=== PATIENT | female | born 1950 | race Caucasian/White ===

== ENCOUNTER 2018-09-19 08:10 | Emergency (ER) | payer MEDICARE ==
[2018-09-19 08:28] VITALS: BP 161/98
--- NOTE | 2018-09-19 09:00 | UC ---
Ear Complaint HPI - HPI Summary HPI Summary: The patient is a 68-year-old female that presents here with a number of complaints. She has had nasal congestion and postnasal drip for approximately 1 week. She states that she has seasonal allergic rhinitis. About 2 years ago she saw an ENT and had sinus surgery as well as bilateral pressure equalization tubes. In the past 2 years she hasn't noticed a marked diminishing of her hearing in the right ear. She denies having any perforation of her traumatic tympanic membrane. She has not been febrile. Her allergy medicines have not been working. She has also had a two-week history of diaphoresis. These episodes seem to occur without rhyme or reason. Occasionally she has had some chest pressure associated with these episodes. She has not had shortness of breath. She has had about a 20 pound weight gain in the past 6 months. She has had a very pruritic rash for a number of weeks. - History of Current Complaint Chief Complaint: UCGeneralIllness Stated Complaint: SWEATING,RASH,RT EAR/SINUS COMPLAINT Time Seen by Provider: 09/19/18 08:50 Hx Obtained From: Patient Onset/Duration: Gradual Onset, Lasting Days Severity Initially: Severe Severity Currently: Severe Pain Intensity: 9 Pain Scale Used: 0-10 Numeric - Allergies/Home Medications Allergies/Adverse Reactions: Allergies Allergy/AdvReac Type Severity Reaction Status Date / Time Penicillins Allergy Hives Verified 09/19/18 08:22 Sulfa (Sulfonamide Allergy Hives Verified 09/19/18 08:22 Antibiotics) Home Medications: Home Medications Acetaminop/Codeine 30 MG TAB* [Tylenol/Codeine 30 MG TAB*] 1 tab PO Q6H PRN [History Confirmed 09/19/18] Aspirin 81 mg CHEW TAB* [Aspirin Low Dose TAB*] 81 mg PO DAILY 09/19/18 [ History Confirmed 09/19/18] Bupropion XL* [Wellbutrin XL *] 150 mg PO BID 09/19/18 [History Confirmed ] Glucosam/Chondr/Collagn/Hyalur [Th Glucosamine/Chondroiti] 1 cap PO BID [History Confirmed 09/19/18] L. Acidophilus/Lactobac Spor [Acidophilus/l-Sporogenes] 1 tab PO TID WITH MEALS 09/19/18 [History Confirmed 09/19/18] Levothyroxine TAB* [Synthroid TAB*] 88 mcg PO DAILY 09/19/18 [History Confirmed 09/19/18] Lisinopril TAB* [Prinivil TAB*] 20 mg PO DAILY 09/19/18 [History Confirmed 09/19] LoraTADine TAB(NF) [Claritin 10 MG TAB(NF)] 10 mg PO DAILY 09/19/18 [History Confirmed 09/19/18] amLODIPine TAB* [Norvasc 5 mg TAB*] 5 mg PO DAILY 09/19/18 [History Confirmed ] PMH/Surg Hx/FS Hx/Imm Hx Previously Healthy: Yes Endocrine History: Dyslipidemia Cardiovascular History: Hypertension - Surgical History Surgical History: Yes Surgery Procedure, Year, and Place: Right Leg "Arteries" Stenting, Appendectomy , Partial Hysterectomy, Right Knee Arthroscopies - Family History Known Family History: Positive: Cardiac Disease, Hypertension, Diabetes - Social History Alcohol Use: Occasionally Substance Use Type: None Smoking Status (MU): Heavy Every Day Tobacco Smoker Type: Cigarettes Amount Used/How Often: 1/2 PPD Length of Time of Smoking/Using Tobacco: Since Age 15 Review of Systems Constitutional: Fatigue Skin: Rash Eyes: Negative ENT: Ear Ache, Nasal Discharge, Sinus Congestion Respiratory: Negative Cardiovascular: Negative Gastrointestinal: Negative Genitourinary: Negative Motor: Negative Neurovascular: Negative Musculoskeletal: Negative Neurological: Negative Psychological: Negative All Other Systems Reviewed And Are Negative: Yes Physical Exam Triage Information Reviewed: Yes Appearance: Well-Appearing, No Pain Distress, Well-Nourished Vital Signs: Initial Vital Signs Temp 97.7 F 09/19/18 08:20 Pulse 92 09/19/18 08:20 Resp 22 09/19/18 08:20 BP 161/98 09/19/18 08:20 Pulse Ox 99 09/19/18 08:20 Eyes: Positive: Conjunctiva Clear ENT: Positive: Nasal congestion, Nasal drainage, Uvula midline, Other - Right tragal tenderness. Negative: Hearing grossly normal - decreased right ear, TMs normal - unable to visualize R TM due to debris in EAC, left TM OK, Tonsillar swelling, Tonsillar exudate, Muffled voice, Hoarse voice, Dental tenderness, Sinus tenderness Neck: Positive: Supple, Nontender Respiratory: Positive: Lungs clear, Normal breath sounds, No respiratory distress, No accessory muscle use Cardiovascular: Positive: RRR, No Murmur Abdomen Description: Negative: Nontender - markedly tender RUQ Musculoskeletal: Positive: ROM Intact, No Edema Neurological: Positive: Alert Psychological Exam: Normal Skin Exam: Other - scabs/excoriated lesion exr and abd, papules, no demetrice noted Diagnostics - EKG Cardiac Rate: NL Cardiac Rhythm: Sinus: Normal Ectopy: None ST Segment: Non-Specific Ear Complaint Course/Dx - Course Course Of Treatment: After flush Right TM appears intact. I informed patient I was concerned about possible GB disease and her diaphoresis. I suggest she go to the ER. I spoke to Dr. Quinones - Differential Dx/Diagnosis Provider Diagnoses: diaphoresis and RUQ abd tenderness (? cause). scabies. right otitis externa Discharge - Sign-Out/Discharge Documenting (check all that apply): Patient Departure All imaging exams completed and their final reports reviewed: No Studies - Discharge Plan Condition: Stable Disposition: TRANS HIGHER LVL OF CARE FAC Prescriptions: Neomyc/Polym/HC 1% OTIC SUSP* [Cortisporin Otic Susp 1%*] 4 drop RIGHT EAR QID 7 Days #1 btl Permethrin [Elimite] 60 gm TOPICAL WEEKLY #60 cream..g. Patient Education Materials: Otitis Externa (ED), Scabies (ED) Referrals: Flores Baez MD [Primary Care Provider] - Additional Instructions: I suggest you see ENT about your right ear hearing loss I suggest you go to the ER for evaluation of your right sided abd pain I spoke to Dr. Quinones and the ER is expecting you - Billing Disposition and Condition Condition: STABLE Disposition: Trans Higher Lvl of Care Fac
== END 2018-09-19 10:19 | disposition short-term general hospital (02) ==
LOC: UCCORT 08:10
DX: R61 Generalized hyperhidrosis (principal); R10.11 Right upper quadrant pain; B86 Scabies; H60.91 Unspecified otitis externa, right ear; I10 Essential (primary) hypertension; E78.5 Hyperlipidemia, unspecified; F17.210 Nicotine dependence, cigarettes, uncomplicated; Z79.82 Long term (current) use of aspirin; Z88.0 Allergy status to penicillin; Z95.820 Peripheral vascular angioplasty status with implants and grafts
CPT/HCPCS: 93005; 99213; G0463

== ENCOUNTER 2018-10-23 15:43 | Emergency (ER) | payer MEDICARE ==
--- OUTSIDE RECORDS SUMMARY | 2018-10-23 15:57 | XMS REPORT | Continuity of Care Document ---
:1950 External Reference #:[id number] Author Name Flores Baez M.D. 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 Flores Baez MD Primary Care Physician Unavailable Payers Type Date Identification Numbers Payment Provider Subscriber Policy Number: [id number] [employer] [address]anna [address] PayID: [id number] [address] [address] [place] [address] Advance Directives Description No Information Available Problems Description No Information Family History Date Family Member(s) Problem(s) Comments Father Unknown Mother Parkinson's Disease Social History Type Date Description Comments Sex Unknown Tobacco Use Start: Unknown Patient is a current smoker, smokes every day Smoking Status Reviewed: 11/12/17 Patient is a current smoker, smokes every day Allergies, Adverse Reactions, Alerts Date Description Reaction Status Severity Comments 05/25/2014 Penicillins Active 05/25/2014 sulfa Active 05/10/2016 Clarithromycin Active Medications Medication Date Status Form Strength Qnty SIG Indications Ordering Provider Levofloxacin 09/24/ Active Tablets 500mg 10tab tab 1 by J01.90 Flores 2017 s mouth Sasha, every day M.DKenny Claritin 02/17/ Active Capsules 10mg 14cap 1 by H65.03 Anderson Martinez s david Baez MD every day Nebulizer 12/06/ Active Device 1unit as J44.9 Flores 2015 jim Baez M.D. Amlodipine 05/25/ Active Tablets 5mg 90tab 1 By Flores Albert 2013 s Mouth Sasha, Every Day M.DKenny Levothyroxine 05/25/ Active Tablets 88mcg 90tab 1 By Flores Sodium 2013 s Mouth Gauss, Every Day M.D. Lisinopril 05/25/ Active Tablets 20mg 90tab Take 1 Flores 2013 s Tablet By Sasha, Mouth M.D. Every Day Levofloxacin / Active Tablets 500mg tab 1 by Unknown 0000 mouth every day Aspirin Adult / Active Tablets DR 81mg 1 by Unknown Low Dose 0000 mouth every day Tylenol Extra / Active Tablets 500mg take two Unknown Strength 0000 tablets by mouth every 6 days as needed Ciprofloxacin 03/24/ Hx Tablets 500mg 45tab 1 by H66.92 Flores HCL 2018 - s mouth Gauss, 09/24/ twice a M.D. 2017 day Acetaminophen-Co 03/24/ Hx Tablets 300-30mg 60tab 1 by H66.92 Flores roberson #3 2017 - s mouth Gauss, 09/24/ every 6 M.D. 2018 hours as needed for pain Ciprofloxacin 02/17/ Hx Tablets 500mg 14tab 1 by H65.03 Anderson F. HCL 2017 - s mouth MD Sasha 03/24/ twice a 2018 day Ciprofloxacin 11/12/ Hx Tablets 500mg 30tab 1 by J01.90 Flores HCL 2016 - s mouth Gauss, 02/17/ twice a M.D. 2017 day Prednisone 11/12/ Hx Tablets 5mg 30tab 1 by L20.9 Flores 2016 - s mouth Gauss, 02/17/ twice a M.D. 2017 day for one week and then 5 mg every day x 1 week Hydrocortisone 11/12/ Hx Cream 1% 56gm apply to L20.9 Flores 2016 - rash Gauss, 02/17/ twice a M.D. 2017 day as needed Naproxen 05/14/ Hx Tablets 500mg 60tab 1 by S92.414B Flores 2017 - s mouth Gauss, 02/17/ twice a M.D. 2017 day as needed Acetaminophen-Co 04/17/ Hx Tablets 300-30mg 30tab 1 by S92.414B Flores roberson #3 2017 - s mouth Gauss, 05/14/ every 6 M.D. 2017 hours as needed for pain Bupropion HCL ER 11/13/ Hx Tablets ER 150mg 60tab 1 po Z72.0 Flores (Smoking Det) 2016 - 12HR s twice a Gauss, 09/24/ day M.D. 2018 Ciprofloxacin 05/10/ Hx Tablets 500mg 30tab 1 by J31.2 Flores HCL 2015 - s mouth Gauss, 05/14/ twice a M.D. 2016 day Albuterol 12/06/ Hx Nebulizer (2.5mg/3ML 60uni 1 four J44.9 Flores Sulfate 2015 - ) 0.083% ts times a Gauss, 11/12/ day as M.D. 2017 needed Clarithromycin 11/07/ Hx Tablets 500mg 60tab 1 by J31.2 Flores 2014 - s mouth Gauss, 05/10/ twice a M.D. 2015 day with food Cortisporin 10/12/ Hx Solution 3.5-43671- 5ml 1 drop to B30.9 Flores 2014 - 1 affected Gauss, 11/04/ eyes 4 x M.D. 2014 daily Azithromycin 05/18/ Hx Tablets 250mg 6tabs 2 by 461.8 Flores 2015 - mouth Gauss, 11/04/ today, 1 M.D. 2014 by mouth day 2 thru 5 Meloxicam 05/11/ Hx Tablets 15mg 30tab 1 by M12.9 Flores 2014 - s mouth Gauss, 11/12/ every day M.D. 2016 Acidophilus 01/04/ Hx Capsules 100ca 1 by 009.1 Flores High-Potency 2015 - ps mouth Gauss, 09/24/ three M.D. 2018 times a day with meals Azithromycin 01/04/ Hx Tablets 250mg 6tabs 2 by 473.90 Flores 2014 - mouth Gauss, 03/07/ today, 1 M.D. 2014 by mouth day 2 thru 5 Saline Nasal 01/04/ Hx Solution 0.65% 45ml 1 spray J32.9 Flores [place] 2014 - each Gauss, 02/17/ nostril M.D. 2017 every 2 hours as needed Levothyroxine 05/25/ Hx Tablets 75mcg 90tab 1 by Flores Sodium 2013 - s mouth Gauss, 05/25/ every day M.D. 2013 Azithromycin 05/25/ Hx Tablets 250mg 6tabs 2 by 473.90 Flores 2013 - mouth Gauss, 07/15/ today, 1 M.D. 2014 by mouth day 2 thru 5 Glucosamine 05/25/ Hx Tablets 1 by moth 715.90 Flores Chondroitin MSM 2013 - 2 x daily Sasha, Advanced Triple 09/24/ M.DKenny Strength 2018 Meloxicam 05/25/ Hx Tablets 7.5mg 90tab 1 by 716.96 Flores 2014 - s mouth Sasha, 05/11/ every day M.D. 2014 with food Levothyroxine 05/25/ Hx Tablets 88mcg 90tab Take 1 Flores Sodium 2013 - s Tablet By Sasha, 09/24/ Mouth M.D. 2018 Every Day Ciprofloxacin / Hx Tablets 500mg 14tab 1 by J32.9 Flores HCL - s mouth Sasha, 11/07/ twice a M.D. 2014 day Metronidazole / Hx Tablets 500mg 1 by Unknown 0000 - mouth three 2018 times a day Clopidogrel / Hx Tablets 75mg 1 by Unknown Bisulfate 0000 - mouth 09/24/ every day 2018 Medications Administered in Office Medication Date Status Form Strength Qnty SIG Indications Ordering Provider B-12 Injection Administered Injection Flores Baez M.D. Immunizations CPT Code Status Date Vaccine Lot # [id number] Given 10/03/2015 Tetanus,Diphtheria,Adut/Adol Pertussis [id number] Given 09/14/2014 Influenza Vaccine (Fluvirin) 2 Years Of Age [place] [id number] Older Vital Signs Date Vital Result Comment 09/24/2018 1:45pm BP Systolic 150 mmHg BP Diastolic 80 mmHg BP Systolic Recheck 130 mmHg BP Diastolic Recheck 70 mmHg Heart Rate 83 /min Body Temperature 98.4 F Height 66 inches 5'6" Weight 183.00 lb BMI (Body Mass Index) 29.5 kg/m2 O2 % BldC Oximetry 97 % 03/24/2018 2:29pm BP Systolic 148 mmHg BP Diastolic 80 mmHg Heart Rate 115 /min Body Temperature 99.4 F Respiratory Rate 18 /min Height 66 inches 5'6" Weight 186.00 lb BMI (Body Mass Index) 30.0 kg/m2 O2 % BldC Oximetry 97 % 02/17/2018 1:27pm BP Systolic 140 mmHg BP Diastolic 82 mmHg Body Temperature 98.3 F Height 66 inches 5'6" Weight 185.00 lb BMI (Body Mass Index) 29.9 kg/m2 11/12/2017 11:20am BP Systolic 148 mmHg BP Diastolic 88 mmHg Heart Rate 98 /min Body Temperature 96.0 F Respiratory Rate 20 /min Height 66 inches 5'6" Weight 185.00 lb BMI (Body Mass Index) 29.9 kg/m2 O2 % BldC Oximetry 98 % 06/03/2017 10:20am BP Systolic 140 mmHg BP Diastolic 78 mmHg Height 66 inches 5'6" Weight 185.00 lb BMI (Body Mass Index) 29.9 kg/m2 05/14/2017 10:07am BP Systolic 148 mmHg BP Diastolic 80 mmHg Height 66 inches 5'6" Weight 187.00 lb BMI (Body Mass Index) 30.2 kg/m2 04/17/2017 1:58pm BP Systolic 148 mmHg BP Diastolic 84 mmHg 11/13/2016 1:38pm BP Systolic 130 mmHg BP Diastolic 76 mmHg Height 66 inches 5'6" Weight 184.00 lb BMI (Body Mass Index) 29.7 kg/m2 05/10/2016 11:43am BP Systolic 130 mmHg BP Diastolic 80 mmHg 12/06/2015 10:58am BP Systolic 136 mmHg BP Diastolic 78 mmHg 11/07/2015 10:26am BP Systolic 140 mmHg BP Diastolic 80 mmHg 10/12/2015 11:31am BP Systolic 138 mmHg BP Diastolic 90 mmHg 05/18/2015 2:48pm BP Systolic 122 mmHg BP Diastolic 70 mmHg 05/11/2015 1:45pm BP Systolic 130 mmHg BP Diastolic 86 mmHg 04/05/2015 2:20pm BP Systolic 132 mmHg BP Diastolic 80 mmHg Height 64 inches 5'4" Weight 177.00 lb BMI (Body Mass Index) 30.4 kg/m2 01/04/2015 2:05pm BP Systolic 122 mmHg BP Diastolic 80 mmHg Body Temperature 98.7 F 10/05/2014 10:04am BP Systolic 136 mmHg BP Diastolic 84 mmHg 09/14/2014 10:57am BP Systolic 140 mmHg BP Diastolic 88 mmHg Height 65 inches 5'5" Weight 175.00 lb BMI (Body Mass Index) 29.1 kg/m2 07/15/2014 11:02am BP Systolic 136 mmHg BP Diastolic 62 mmHg 05/25/2014 11:39am BP Systolic 148 mmHg BP Diastolic 88 mmHg Height 64 inches 5'4" Weight 172.00 lb BMI (Body Mass Index) 29.5 kg/m2 Results Test Date Facility Test Result H/L Range Note Laboratory test 09/19/2018 [facility] 104 mg/dL High 70-100 [address] Glucose [place] [address] [phone] Ua RFX Micro & 09/19/2018 [facility] Urine Color YELLOW Yellow 2 Culture II [address] [place] [address] [phone] Urine Clarity CLEAR Clear Urine Glucose - Dipstick NEGATIVE mg/dL Negative Urine Bilirubin - Dipstick NEGATIVE Negative Urine Ketone NEGATIVE mg/dL Negative Urine Specific [place] 1.025 1.010-1.030 Urine Blood NEGATIVE Negative Urine PH 5.5 Low 6.5-7.5 Urine Protein - Dipstick NEGATIVE mg/dL Negative Urine Urobilinogen - Dipstick 0.2 E.U./dL 0.2-1.0 Urine Nitrite - Dipstick NEGATIVE Negative Urine Leuk Esterase NEGATIVE Negative Source: URINE, CLEAN CAT <SEE NOTE> 3 Protime 09/19/2018 [facility] Protime 12.4 seconds 12.0-14.[address] [place] [address] [phone] Inr 0.9 0.9-1.1 5 Differential-WBC 09/19/2018 [facility] Total Cells 100 #CELLS Confirm [address] Counted [place] [address] [phone] Band% 1 % 0-8 Neutrophils% 49 % 33-73 Lymph% 35 % 20-42 Atypical Lymph% 12 % High 0-7 Monocyte% 3 % 0-10 Platelet Estimate NORMAL RBC Morphology NORMAL Path Review: 09/19/2018 [facility] Path Review: INDICATED,SLIDE [address] <SEE NOTE> [place] [address] [phone] Slide Review 09/19/2018 [facility] Slide Review DIFF ORDERED [address] [place] [address] [phone] CBS 09/19/2018 [facility] White Blood 18.5 K/uL High 3.1- W/Automated [address] Count 10.7 [place] [address] [phone] Red Blood Count 5.37 M/uL 3.90-5.40 Hemoglobin 15.8 gm/dL 11.6-15.8 Hematocrit 47.5 % High 36.0-46.1 Mean Cell Volume 88.5 fl 80.9-99.0 Mean Corpuscular HGB 29.4 pg 25.9-32.7 Mean Corpuscular HGB Conc 33.3 g/dL 30.8-34.3 Platelet Count 314 K/uL 155-360 Red Cell Distri Width SD 47.2 fl High 3-47 Red Cell Distri Width %CV 14.8 % High 11.7-14.4 Mean Platelet Volume 9.8 fL 8.9-12.4 Neut% 42.5 % 40.4-72.8 Lymph % 48.2 % High 20.0-42.0 Wirt % 7.5 % 4.3-13.2 Eo% 1.5 % 0.0-6.6 Bas% 0.3 % 0.0-1.1 Neut# 7.88 K/uL High 1.8-7.0 Lymph # 8.91 K/uL High 1.0-4.0 Wirt # 1.39 K/uL High 0.3-0.9 Eos # 0.27 K/uL 0.0-0.5 Baso # 0.05 K/uL 0.0-0.1 Laboratory test 09/19/2018 [facility] Lipase 128 U/L 56-289 [address] [place], [place] [id number] [phone] Troponin-I < 0.015 ng/mL 8 Comprehensive 09/19/2018 [facility] Glucose 107 mg/ dL High 74-106 Metabolic Panel [address] [place], [place] [id number] [phone] BUN 11 mg/dL 7-18 Creatinine 0.8 mg/dL 0.6-1.3 Glom Filtration Rate, Estimate >60 mL/min >60 If >60 mL/min >60 9 BUN/Creat 13.7 ratio Sodium 140 mmol/L 136-145 Potassium 4.6 mmol/L 3.5-5.1 Chloride 105 mmol/L 98-107 Carbon Dioxide 28 mmol/L 21-32 Anion Gap 7 mEq/L Low 8-16 Calcium 8.6 mg/dL 8.5-10.1 Total Protein 7.2 g/dL 6.4-8.2 Albumin 3.7 g/dL 3.4-5.0 Globulin 3.5 g/dL 1.9-4.3 Alb/Glob 1.1 ratio Bilirubin,Total 0.4 mg/dL 0.2-1.0 Sgot/Ast 31 U/L 15-37 SGPT/Alt 57 U/L 12-78 Alkaline Phosphatase 90 U/L 45-117 Lipid Panel 03/12/2018 [facility] Cholesterol 259 mg/dL High <199 10 [address] [facility] [place] [address] [phone] HDL Cholesterol 57 mg/dL >50 Cholesterol/HDL Ratio 4.5 CALC <5.0 LDL Chol,Calculated 160 mg/dL High 0-100 11 Triglycerides 247 mg/dL High <150 Non-HDL Cholesterol 202 mg/dL High <130 12 TSH & T4,Free 03/12/2018 [facility] TSH 4.61 mIU/L High 0.40-4.50 13 [address] [place] [address] [phone] T4,Free 1.4 ng/dL 0.8-1.8 Basic Metabolic Panel 03/12/2018 [facility] Sodium 140 mmol/L 135-146 6 [place] [address] [phone] Potassium 4.6 mmol/L 3.5-5.3 Chloride 102 mmol/L 98-110 Carbon Dioxide 28 mmol/L 20-31 Calcium 10.0 mg/dL 8.6-10.4 Glucose 97 mg/dL 65-99 14 Urea Nitrogen (BUN) 15 mg/dL 7-25 Creatinine 0.89 mg/dL 0.50-0.99 15 BUN/Creatinine Ratio 16.5 6-22 Egfr Non-Afr. [place] 66 ML/MIN/1.73M2 > Or=60 Egfr 77 ML/MIN/1.73M2 > Or=60 Laboratory test 03/12/2018 [facility] Hemoglobin A1c 5.9 % High 0-5.6 16 finding [address] [place] [address] [phone] Vitamin B12,Serum 409 pg/mL 200-1100 CBC W/ Diff & PLT 03/12/2018 [facility] WBC 16.4 thous/L High 3.8-10.[address] [place], [place] [id number] [phone] RBC 5.49 mill/L High 3.80-5.10 Hemoglobin 16.1 g/dL High 11.7-15.5 Hematocrit 50.3 % High 35.0-45.0 MCV 91.7 FL 80.0-100.0 MCH 29.3 pg 27.0-33.0 MCHC 31.9 g/dL Low 32.0-36.0 RDW 14.0 % 11.0-15.0 Platelet Count 368 thous/L 140-400 Platelet Sufficiency PENDING MPV 8.7 FL 7.5-12.5 Neutrophils,Absolute 7600 cells/L [phone] Bands,Absolute PENDING Metamyelocytes,Absolute PENDING Myelocytes,Absolute PENDING Promyelocytes,Absolute PENDING Lymphocytes,Absolute 7800 cells/L High 850-3900 Monocytes,Absolute 700 cells/L 200-950 Eosinophils,Absolute 300 cells/L 15-500 Basophils,Absolute 100 cells/L 0-200 Blast Cells,Absolute PENDING Nucleated RBC,Absolute PENDING Total Neutrophils,% 46 % 40-75 Bands,% PENDING Metamyelocytes,% PENDING Myelocytes,% PENDING Promyelocytes,% PENDING Total Lymphocytes,% 48 % High 12-47 Monocytes,% 5 % 4-12 Eosinophils,% 2 % 0-4 Basophils,% 0 % 0-1 17 Blasts,% PENDING Nucleated RBC PENDING RBC Morphology PENDING Anisocytosis PENDING Poikilocytosis PENDING Microcytosis PENDING Macrocytosis PENDING Polychromasia PENDING Hypochromasia PENDING Target Cells PENDING Basophilic Stippling PENDING Comment PENDING [facility] 03/12/2018 [facility] Vitamin 19 ng/mL Low 30-100 25-Hydroxyvitamin [address] D,25-Oh,Total D(D2,D3) [place] [address] [phone] Vitamin D,25-Oh,D3 19 ng/mL Vitamin D,25-Oh,D2 <4 ng/mL 18 Hepatic Function 05/07/2017 [facility] Alkaline Phosphatase 82 U/L 33- [address] [place] [id number] [phone] Ast 20 U/L 10-35 Alt 33 U/L High 6-29 Bilirubin,Total 0.5 mg/dL 0.2-1.2 Bilirubin,Direct 0.1 mg/dL < Or=0.2 Protein,Total 6.9 g/dL 6.1-8.1 Albumin 4.3 g/dL 3.6-5.1 Globulin,Calculated 2.6 g/dL 1.9-3.7 A/G Ratio 1.7 1.0-2.5 Laboratory test 05/07/2017 [facility] Hemoglobin A1c 5.9 % High 0-5.6 [address] [place] [address] [phone] TSH & T4,Free 05/07/2017 [facility] TSH 3.06 0.40-4.[address] mIU/[place] [address] [phone] T4,Free 1.4 ng/dL 0.8-1.8 Laboratory test 05/07/2017 [facility] Vitamin 432 pg/mL 200-[address] B12,[place] [address] [phone] Basic Metabolic 05/07/2017 [facility] Sodium 140 mmol/L 135-[address] [place] [address] [phone] Potassium 4.5 mmol/L 3.5-5.3 Chloride 103 mmol/L 98-110 Carbon Dioxide 26 mmol/L 20-31 Calcium 9.4 mg/dL 8.6-10.4 Glucose 94 mg/dL 65-99 21 Urea Nitrogen 14 mg/dL 7-25 Creatinine 0.74 mg/dL 0.50-0.99 22 BUN/Creatinine Ratio 18.2 6-22 Egfr Non-Afr. [place] 83 ML/MIN/1.73M2 > Or=60 Egfr 96 ML/MIN/1.73M2 > Or=60 Lipid Panel 11/06/2016 [facility] Cholesterol 249 mg/dL High 125-[address] [place] [address] [phone] HDL Cholesterol 55 mg/dL > Or=46 Cholesterol/HDL Ratio 4.5 < Or=5.0 LDL Chol,Calculated 148 mg/dL High <130 23 Triglycerides 229 mg/dL High <150 Non-HDL Cholesterol 193 mg/dL High 24 TSH & T4,Free 11/06/2016 [facility] TSH 2.30 mIU/L 0.40-4.[address] [place] [address] [phone] T4,Free 1.3 ng/dL 0.8-1.8 CBC W/ Diff & PLT 11/06/2016 [facility] WBC 11.2 thous/L High 3.8-10.[address] [place], [place] [address] [phone] RBC 5.37 mill/L High 3.80-5.10 Hemoglobin 15.3 g/dL 11.7-15.5 Hematocrit 46.9 % High 35.0-45.0 MCV 87.3 FL 80.0-100.0 MCH 28.5 pg 27.0-33.0 MCHC 32.6 g/dL 32.0-36.0 RDW 13.8 % 11.0-15.0 Platelet Count 309 thous/L 140-400 Platelet Sufficiency PENDING MPV 9.0 FL 7.5-11.5 Neutrophils,Absolute 6430 cells/L [phone] Bands,Absolute PENDING Metamyelocytes,Absolute PENDING Myelocytes,Absolute PENDING Promyelocytes,Absolute PENDING Lymphocytes,Absolute 3720 cells/L 850-3900 Monocytes,Absolute 760 cells/L 200-950 Eosinophils,Absolute 250 cells/L 15-500 Basophils,Absolute 0 cells/L 0-200 Blast Cells,Absolute PENDING Nucleated RBC,Absolute PENDING Total Neutrophils,% 58 % 40-75 Bands,% PENDING Metamyelocytes,% PENDING Myelocytes,% PENDING Promyelocytes,% PENDING Total Lymphocytes,% 33 % 12-47 Monocytes,% 7 % 4-12 Eosinophils,% 2 % 0-4 Basophils,% 0 % 0-1 26 Blasts,% PENDING Nucleated RBC PENDING RBC Morphology PENDING Anisocytosis PENDING Poikilocytosis PENDING Microcytosis PENDING Macrocytosis PENDING Polychromasia PENDING Hypochromasia PENDING Target Cells PENDING Basophilic Stippling PENDING Comment PENDING Basic Metabolic Panel 11/06/2016 [facility] Sodium 140 mmol/L 135-[address] [place] [address] [phone] Potassium 4.5 mmol/L 3.5-5.3 Chloride 102 mmol/L 98-110 Carbon Dioxide 28 mmol/L 20-31 Calcium 9.7 mg/dL 8.6-10.4 Glucose 94 mg/dL 65-99 27 Urea Nitrogen 11 mg/dL 7-25 Creatinine 0.86 mg/dL 0.50-0.99 28 BUN/Creatinine Ratio 12.8 6-22 Egfr Non-Afr. [place] 70 ML/MIN/1.73M2 > Or=60 Egfr 81 ML/MIN/1.73M2 > Or=60 BMP W/O Egfr 11/29/2015 [facility] Sodium 137 mmol/L 135-[address] [place] [address] [phone] Potassium 4.4 mmol/L 3.5-5.3 Chloride 101 mmol/L 98-110 Carbon Dioxide 27 mmol/L 19-30 Calcium 10.0 mg/dL 8.6-10.4 Glucose 90 mg/dL 65-99 29 Urea Nitrogen 11 mg/dL 7-25 Creatinine 0.76 mg/dL 0.50-0.99 30 BUN/Creatinine Ratio 14.6 6-22 BMP W/O Egfr 10/31/2015 [facility] Sodium 138 mmol/L 135-[address] [place] [address] [phone] Potassium 4.5 mmol/L 3.5-5.3 Chloride 100 mmol/L 98-110 Carbon Dioxide 27 mmol/L 19-30 Calcium 9.6 mg/dL 8.6-10.4 Glucose 79 mg/dL 65-99 31 Urea Nitrogen 12 mg/dL 7-25 Creatinine 0.69 mg/dL 0.50-0.99 32 BUN/Creatinine Ratio 17.7 6-22 Laboratory test 06/28/2015 [facility] Polyp Colon See Note [address] [place] [address] [phone] Arthritis Profile 05/11/2015 [facility] Rheumatoid Factor 8 IU/mL <[address] [place] [address] [phone] Uric Acid 4.3 mg/dL 2.5-7.0 34 Anti-Streptolysin O 136 IU/mL <201 [place] Screen NEGATIVE Negative Iron Deficiency Profile 05/11/2015 [facility] Iron,Total 78 g/dL 45- [address] [place] [address] [phone] Tibc 398 g/dL 250-450 % Saturation 20 % 11-50 Ferritin 97 NG/ML 20-288 TSH & T4,Free 05/11/2015 [facility] TSH 3.51 mIU/L 0.40-4.[address] [place], [place] [id number] [phone] T4,Free 1.6 ng/dL 0.8-1.8 Laboratory test finding 03/28/2015 [facility] Glucose 81 mg/dL 65-[address] [place] [address] [phone] Direct LDL 151 mg/dL High <130 37 Basic Metabolic Panel 12/29/2014 [facility] Glucose 99 mg/dL 74-[address] [place], [place] [id number] [phone] BUN 6 mg/dL Low 7-18 Creatinine 0.7 mg/dL 0.6-1.3 Glom Filtration Rate, Estimate >60 mL/min >60 If >60 mL/min >60 38 BUN/Creat 8.5 ratio Sodium 140 mmol/L 136-145 Potassium 3.8 mmol/L 3.5-5.1 Chloride 108 mmol/L High 98-107 Carbon Dioxide 24 mmol/L 21-32 Anion Gap 12 mEq/L 8-16 Calcium 8.8 mg/dL 8.5-10.1 Basic Metabolic Panel 12/28/2014 [facility] Glucose 92 mg/dL 74-[address] [place] [address] [phone] BUN 8 mg/dL 7-18 Creatinine 0.8 mg/dL 0.6-1.3 Glom Filtration Rate, Estimate >60 mL/min >60 If >60 mL/min >60 39 BUN/Creat 10.0 ratio Sodium 138 mmol/L 136-145 Potassium 3.8 mmol/L 3.5-5.1 Chloride 105 mmol/L 98-107 Carbon Dioxide 26 mmol/L 21-32 Anion Gap 11 mEq/L 8-16 Calcium 8.4 mg/dL Low 8.5-10.1 CBC W/Automated 12/28/2014 [facility] White Blood 13.3 K/uL High 3.1-10.[address] [place] [address] [phone] Red Blood Count 4.68 M/uL 3.90-5.40 Hemoglobin 13.6 gm/dL 11.6-15.8 Hematocrit 41.2 % 36.0-46.1 Mean Cell Volume 88.0 fl 80.9-99.0 Mean Corpuscular HGB 29.1 pg 25.9-32.7 Mean Corpuscular HGB Conc 33.0 g/dL 30.8-34.3 Platelet Count 381 K/uL High 155-360 Red Cell Distri Width SD 42.6 fl 3-47 Red Cell Distri Width %CV 13.5 % 11.7-14.4 Mean Platelet Volume 9.9 fL 8.9-12.4 Neut% 69.2 % 40.4-72.8 Lymph % 17.3 % 17.0-46.1 Wirt % 11.6 % 4.3-13.2 Eo% 1.6 % 0.0-6.6 Bas% 0.3 % 0.0-1.1 Neut# 9.23 K/uL High 1.0-7.0 Lymph # 2.31 K/uL 0.8-3.4 Wirt # 1.55 K/uL High 0.3-0.9 Eos # 0.21 K/uL 0.0-0.5 Baso # 0.04 K/uL 0.0-0.1 Influenza A & B 12/17/2014 [facility] Influenza A Negative (Negative) Antigen [address] [place] [address] [phone] Influenza B Antigen Negative (Negative) 40 BMP W/O Egfr 09/28/2014 [facility] Sodium 139 mmol/L 135-[address] [place] [address] [phone] Potassium 5.1 mmol/L 3.5-5.3 Chloride 105 mmol/L 98-110 Carbon Dioxide 28 mmol/L 19-30 Calcium 9.5 mg/dL 8.6-10.4 Glucose 80 mg/dL 65-99 41 Urea Nitrogen 14 mg/dL 7-25 Creatinine 0.75 mg/dL 0.50-0.99 42 BUN/Creatinine Ratio 18.4 6-22 Laboratory test 09/28/2014 [facility] Hemoglobin A1c 5.9 % High 0.0-5.6 [address] [place], [place] [id number] [phone] Direct LDL 150 mg/dL High <130 44 CBC W/ Diff & PLT 09/28/2014 [facility] WBC 9.1 thous/L 3.8-10.8 [address] [facility] [place] [address] [phone] RBC 5.04 mill/L 3.80-5.10 Hemoglobin 14.9 g/dL 11.7-15.5 Hematocrit 44.6 % 35.0-45.0 MCV 88.5 FL 80.0-100.0 MCH 29.5 pg 27.0-33.0 MCHC 33.4 g/dL 32.0-36.0 RDW 13.9 % 11.0-15.0 Platelet Count 359 thous/L 140-400 Platelet Sufficiency PENDING Neutrophils,Absolute 5910 cells/L [phone] Bands,Absolute PENDING Metamyelocytes,Absolute PENDING Myelocytes,Absolute PENDING Promyelocytes,Absolute PENDING Lymphocytes,Absolute 2210 cells/L 850-3900 Monocytes,Absolute 740 cells/L 200-950 Eosinophils,Absolute 240 cells/L 15-500 Basophils,Absolute 40 cells/L 0-200 Blast Cells,Absolute PENDING Nucleated RBC,Absolute PENDING Total Neutrophils,% 65 % Not Established Bands,% PENDING Metamyelocytes,% PENDING Myelocytes,% PENDING Promyelocytes,% PENDING Total Lymphocytes,% 24 % Not Established Monocytes,% 8 % Not Established Eosinophils,% 3 % Not Established Basophils,% 0 % Not Established Blasts,% PENDING Nucleated RBC PENDING RBC Morphology PENDING Anisocytosis PENDING Poikilocytosis PENDING Microcytosis PENDING Macrocytosis PENDING Polychromasia PENDING Hypochromasia PENDING Target Cells PENDING Basophilic Stippling PENDING Comment PENDING Laboratory test 09/28/2014 [facility] Iron,Total 93 g/dL 45-[address] [place] [address] [phone] TSH & T4,Free 09/28/2014 [facility] TSH 2.43 mIU/L 0.40-4.[address] [place], [place] [address] [phone] T4,Free 1.5 ng/dL 0.8-1.8 Creatinine 09/15/2014 [facility] Creatinine 1.02 mg/dL High 0.50-0.99 46 W/Egfr [address] [place] [address] [phone] Egfr Non-Afr. [place] 58 ML/MIN/1.73M2 Low > Or=60 Egfr 67 ML/MIN/1.73M2 > Or=60 Laboratory test 09/15/2014 [facility] Urea Nitrogen 17 mg/dL 7-[address] [place], [place] [id number] [phone] Laboratory test 06/25/2014 [facility] Direct LDL 152 mg/dL High <130 [address] [place], [place] [id number] [phone] TSH & T4,Free 06/25/2014 [facility] TSH 2.38 mIU/L 0.40-4.[address] [place], [place] [id number] [phone] T4,Free 1.8 ng/dL 0.8-1.8 Laboratory test 05/14/2014 [facility] Thyroid Stim 5.37 uIU/mL High 0.49-4.[address] Hormone [place], [place] [id number] [phone] Free T4 1.20 ng/dL 0.71-1.85 LDL Cholesterol 05/14/2014 [facility] Cholesterol 205 mg/dL High 120-[address] [place] [address] [phone] Triglycerides 136 mg/dL 16-231 HDL Cholesterol 45 mg/dL 29-83 LDL-Cholesterol 133 mg/dL 62-185 Laboratory test 05/14/2014 [facility] Sedimentation Rate 3 mm/hr 0-[address] [place], [place] [id number] [phone] Basic Metabolic 05/14/2014 [facility] Glucose 95 mg/ dL 76-[address] [place] [address] [phone] BUN 11 mg/dL 5-23 Creatinine 0.7 mg/dL 0.5-1.4 Glom Filtration Rate, Estimate >60 mL/min >60 If >60 mL/min >60 49 BUN/Creat 15.7 ratio Sodium 139 mmol/L 136-145 Potassium 4.2 mmol/L 3.5-5.1 Chloride 104 mmol/L 98-107 Carbon Dioxide 29 mEq/L 18-29 Anion Gap 10 mEq/L 8-16 Calcium 9.6 mg/dL 8.5-10.1 CBC W/ Diff & 05/14/2014 [facility] White Blood 9.9 K /uL 3.1-10.[address] [place] [address] [phone] Red Blood Count 5.11 M/uL 3.90-5.40 Hemoglobin 14.9 gm/dL 11.6-15.8 Hematocrit 45.0 % 36.0-46.1 Mean Cell Volume 88.1 fl 80.9-99.0 Mean Corpuscular HGB 29.2 pg 25.9-32.7 Mean Corpuscular HGB Conc 33.1 g/dL 30.8-34.3 Platelet Count 362 K/uL High 155-360 Red Cell Distri Width SD 44.5 fl 3-47 Red Cell Distri Width %CV 14.2 % 11.7-14.4 Mean Platelet Volume 10.7 fL 8.9-12.4 Neut% 60.4 % 40.4-72.8 Lymph % 25.2 % 17.0-46.1 Wirt % 10.8 % 4.3-13.2 Eo% 3.2 % 0.0-6.6 Bas% 0.4 % 0.0-1.1 Neut# 5.98 K/uL 1.0-7.0 Lymph # 2.49 K/uL 0.8-3.4 Wirt # 1.07 K/uL High 0.3-0.9 Eos # 0.32 K/uL 0.0-0.5 Baso # 0.04 K/uL 0.0-0.[address] Supervisor: [id number] SENT BY [facility] PAIN IN ABD AND SOB 3 URINE, CLEAN CATCH 4 SENT BY [facility] PAIN IN ABD AND SOB ABD PAIN, LEUKOCYTOCIS 5 THERAPEUTIC INR RANGE: 2.0 - 3.0 DVT, Pulmonary embolus, prophylaxis against venous thrombosis or systemic embolization in high risk patients. 2.5 - 3.5 Mechanical heart valves 6 INDICATED,SLIDE SENT Reviewed previous history, path review indicated Hematology Consultation - Final Report Case# [id number] FINAL DIAGNOSIS REVIEW OF PERIPHERAL BLOOD SMEAR Review of peripheral blood smear confirms the hemogram findings. There is mild absolute lymphocytosis. The lymphcytes have reactive appearance. The findings are strongly suggestive of an ACUTE VIRAL INFECTION. This case was reviewed and signed out at [facility], [address] [place] [address]. Vee Guido M.D., Pathologist Reported: 09/22/2018 7:11 PM Report Signed Electronically GROSS DESCRIPTION Peripheral Blood smear CLINICAL DATA Absolute lymphocytosis, mild Abdominal pain and SOB Vee Guido M.D., Pathologist 09/22/2018 7:11 PM Performed at: [facility] [address] [id number] 7 SENT BY [facility] PAIN IN ABD AND SOB 8 0.0 - 0.045 ng/mL: Normal 0.046 - 0.5 ng/mL: Suggestive 0.6 - 1.5 ng/mL: Consistent 9 Note: Persistent reduction for 3 months or more in an eGFR <60 mL/min/1.73 m2 defines CKD. Patients with eGFR values >/=60 mL/min/1.73 m2 may also have CKD if evidence of persistent proteinuria is present. The original MDRD equation for estimated GFR is not valid for patients less than 18 years of age. Additional information may be found at www.kdoqi.org. 10 FASTING 11 LDL-C is now calculated using the Keira calculation, which is a validated novel method providing better accuracy than the Friedewald equation in the estimation of LDL-C. Marcial LOVE et al.ALECIA.2013;310(19):5311-8227 Desirable range <100 mg/dL for primary prevention; <70 mg/dL for patients with CHD or diabetic patients with >or=2 CHD risk factors. For additional information, please refer to http://education.[employer]/faq/WKZ517(This link is being provided for informational/educational purposes only.) 12 For patients with diabetes plus 1 major ASCVD risk factor, treating to a non-HDL-C goal of <100 mg/dL (LDL-C of <70 mg/ dL) is considered a therapeutic option. 13 REFERENCE RANGES BELOW ARE APPLICABLE TO FEMALES FIRST TRIMESTER - 0.26 - 2.66 mIU/L SECOND TRIMESTER - 0.55 - 2.73 mIU/L THIRD TRIMESTER - 0.43 - 2.91 mIU/L 14 GLUCOSE REFERENCE RANGE BASED ON FASTING SPECIMEN. 15 The upper reference limit for Creatinine is approximately 13% higher for people identified as -[place]. 16 For someone without known diabetes, a hemoglobin A1C value between 5.7% and 6.4% is consistent with prediabetes and should be confirmed with a follow-up test. For someone with known diabetes, a value <7% indicates that their diabetes is well controlled. A1C targets should be individualized based on duration of diabetes, age, co-morbid conditions and other considerations. This assay result is consistent with an increased risk of diabetes. Currently, no consensus exists regarding use of hemoglobin A1C for diagnosis of diabetes in children. FOR DIAGNOSTIC PURPOSES: A1C VALUE(% OF TOTAL HEMOGLOBIN) INTERPRETATION < 5.7 CONSISTENT WITH THE ABSENCE OF DIABETES 5.7 - 6.4 CONSISTENT WITH INCREASED RISK OF DIABETES > OR=6.5 CONSISTENT WITH DIABETES FOR MONITORING PURPOSES (ADA GUIDELINNES): A1C VALUE(% OF TOTAL HEMOGLOBIN) INTERPRETATION < 6.5 ACHIEVES STRINGENT GLYCEMIC GOAL < 7.0 ACHIEVES GENERAL GLYCEMIC GOAL(NON- ADULTS) < 8.0 ACHIEVES LESS STRINGENT GLYCEMIC GOAL 17 Relative blood cell counts (%) should be compared with absolute cell counts (cells/mcL). Relative counts may not be clinically meaningful if the absolute count of one or more cell type is decreased. Reference ranges for relative cell counts derived from: A Manual of Laboratory and Diagnostics Tests, 9th Ed, [employer]ad[employer] & Wyman, 2015. Pediatric Reference Intervals, 7th Ed, [facility] [employer], 2011. 18 25-OHD3 indicates both endogenous production and supplementation. 25-OHD2 is an indicator of exogenous sources such as diet or supplementation. Therapy is based on measurement of Total 25-OHD, with levels <20 ng/mL indicative of Vitamin D deficiency while levels between 20 ng/mL and 30 ng/mL suggest insufficiency. Optimal levels are > or=30 ng/mL. For more information on this test, go to http://[employer]/faq/WKV059 19 For someone without known diabetes, a hemoglobin A1C value between 5.7% and 6.4% is consistent with prediabetes and should be confirmed with a follow-up test. For someone with known diabetes, a value <7% indicates that their diabetes is well controlled. A1C targets should be individualized based on duration of diabetes, age, co-morbid conditions and other considerations. This assay result is consistent with an increased risk of diabetes. Currently, no consensus exists regarding use of hemoglobin A1C for diagnosis of diabetes in children. FOR DIAGNOSTIC PURPOSES: A1C VALUE(% OF TOTAL HEMOGLOBIN) INTERPRETATION < 5.7 CONSISTENT WITH THE ABSENCE OF DIABETES 5.7 - 6.4 CONSISTENT WITH INCREASED RISK OF DIABETES > OR=6.5 CONSISTENT WITH DIABETES FOR MONITORING PURPOSES (ADA GUIDELINNES): A1C VALUE(% OF TOTAL HEMOGLOBIN) INTERPRETATION < 6.5 ACHIEVES STRINGENT GLYCEMIC GOAL < 7.0 ACHIEVES GENERAL GLYCEMIC GOAL(NON- ADULTS) < 8.0 ACHIEVES LESS STRINGENT GLYCEMIC GOAL 20 REFERENCE RANGES BELOW ARE APPLICABLE TO FEMALES FIRST TRIMESTER - 0.26 - 2.66 mIU/L SECOND TRIMESTER - 0.55 - 2.73 mIU/L THIRD TRIMESTER - 0.43 - 2.91 mIU/L 21 GLUCOSE REFERENCE RANGE BASED ON FASTING SPECIMEN. 22 The upper reference limit for Creatinine is approximately 13% higher for people identified as -[place]. 23 LDL-CHOLESTEROL RISK CATEGORY* GOAL VERY HIGH (E.G. DIABETES + CVD) <70 MG/DL HIGH (DIABETICS; CHD RISK EQUIVALENTS) <100 MG/DL MODERATELY HIGH (MULTIPLE(2+) RISK FACTORS) <130 MG/DL 0 TO 1 RISK FACTORS <160 MG/DL * NCEP REPORT. CIRCULATION 2004; 110: 227-239 24 Target for non-HDL cholesterol is 30 mg/dL higher than LDL cholesterol target. 25 REFERENCE RANGES BELOW ARE APPLICABLE TO FEMALES FIRST TRIMESTER - 0.26 - 2.66 mIU/L SECOND TRIMESTER - 0.55 - 2.73 mIU/L THIRD TRIMESTER - 0.43 - 2.91 mIU/L 26 Relative blood cell counts (%) should be compared with absolute cell counts (cells/mcL). Relative counts may not be clinically meaningful if the absolute count of one or more cell type is decreased. Reference ranges for relative cell counts derived from: A Manual of Laboratory and Diagnostics Tests, 9th Ed, Taylor Jadon & Wyman, 2015. Pediatric Reference Intervals, 7th Ed, [employer], 2011. 27 GLUCOSE REFERENCE RANGE BASED ON FASTING SPECIMEN. 28 The upper reference limit for Creatinine is approximately 13% higher for people identified as -[place]. 29 GLUCOSE REFERENCE RANGE BASED ON FASTING SPECIMEN. 30 The upper reference limit for Creatinine is approximately 13% higher for people identified as -[place]. 31 GLUCOSE REFERENCE RANGE BASED ON FASTING SPECIMEN. 32 The upper reference limit for Creatinine is approximately 13% higher for people identified as -[place]. 33 OPERATION/PROCEDURE Colonoscopy, polypectomy DIAGNOSIS: PART 1: "COLON, RANDOM, BIOPSY": BENIGN COLONIC MUCOSA WITH NO SIGNIFICANT PATHOLOGIC ABNORMALITIES. NO EVIDENCE OF MICROSCOPIC COLITIS. PART 2: "COLON, ASCENDING, BIOPSY": TUBULOVILLOUS ADENOMA, NO HIGH-GRADE DYSPLASIA OR MALIGNANCY. PART 3: "COLON, SIGMOID, BIOPSY": TUBULOVILLOUS ADENOMA. NO HIGH-GRADE DYSPLASIA OR MALIGNANCY. PART 4: "COLON, RECTAL, BIOPSY": HYPERPLASTIC POLYP. EP/clf 1045 GROSS Part 1. The specimen is received in formalin in a container labeled, " RANDOM COLON BIOPSIES" and consists of multiple pieces of amezcua, soft, rubbery tissue measuring 0.4 x 0.4 x 0.2 cm. in aggregate. Submitted in entirely in one cassette. Part 2. The specimen is received in formalin in a container labeled, "ASCENDING COLON POLYP" and consists of multiple fragments of amezcua, soft rubbery tissue measuring 0.5 x 0.5 x 0.2 cm. in aggregate. Submitted entirely in one cassette. Part 3. The specimen is received in formalin in a container labeled, "SIGMOID POLYP, SNARED" and consists of one amezcua, soft rubbery tissue measuring 0.8 x 0.7 x 0.5 cm. The specimen is bisected and submitted entirely in one cassette. Part 4. The specimen is received in formalin in a container labeled, " RECTAL POLYP" and consists of multiple fragments of amezcua, soft, rubbery tissue measuring 0.3 x 0.3 x 0.2 GROSS (Continued) cm. in aggregate. Submitted entirely in one cassette. CC/clf PRE OPERATIVE DIAGNOSIS Diverticulosis, diarrhea REVIEW CODE CODE: I Signed Electronically signed Nash BROCK MD 06/30/15 1151 34 Therapeutic target for gout patients: <6.0 mg/dL 35 REFERENCE RANGES BELOW ARE APPLICABLE TO FEMALES FIRST TRIMESTER - 0.26 - 2.66 mIU/L SECOND TRIMESTER - 0.55 - 2.73 mIU/L THIRD TRIMESTER - 0.43 - 2.91 mIU/L 36 GLUCOSE REFERENCE RANGE BASED ON FASTING SPECIMEN. 37 LDL-CHOLESTEROL RISK CATEGORY* GOAL VERY HIGH (E.G. DIABETES + CVD) <70 MG/DL HIGH (DIABETICS; CHD RISK EQUIVALENTS) <100 MG/DL MODERATELY HIGH (MULTIPLE(2+) RISK FACTORS) <130 MG/DL 0 TO 1 RISK FACTORS <160 MG/DL * NCEP REPORT. CIRCULATION 2004; 110: 227-239 38 Note: Persistent reduction for 3 months or more in an eGFR <60 mL/min/1.73 m2 defines CKD. Patients with eGFR values >/=60 mL/min/1.73 m2 may also have CKD if evidence of persistent proteinuria is present. The original MDRD equation for estimated GFR is not valid for patients less than 18 years of age. Additional information may be found at www.kdoqi.org. 39 Note: Persistent reduction for 3 months or more in an eGFR <60 mL/min/1.73 m2 defines CKD. Patients with eGFR values >/=60 mL/min/1.73 m2 may also have CKD if evidence of persistent proteinuria is present. The original MDRD equation for estimated GFR is not valid for patients less than 18 years of age. Additional information may be found at www.kdoqi.org. 40 Please Note: A POSITIVE result for influenza A and/or B antigen does not rule out a co-infection with other pathogens or identify any specific influenza A virus subtype. A NEGATIVE result for influenza A and/or B antigen does not preclude influenza virus infection and should not be the sole basis for treatment or other management decisions, since the antigen present in the specimen may be below the detection limit of the test. A NEGATIVE result is PRESUMPTIVE and it is recommended these results be confirmed by virus culture or an FDA-cleared influenza A and B molecular assay. 41 GLUCOSE REFERENCE RANGE BASED ON FASTING SPECIMEN. 42 The upper reference limit for Creatinine is approximately 13% higher for people identified as -[place]. 43 According to ADA guidelines, hemoglobin A1c <7.0% represents optimal control in non- diabetic patients. Different metrics may apply to specific patient populations. Standards of Medical Care in Diabetes-2013. Diabetes Care. 2013;36:s11-s66 For the purpose of screening for the presence of diabetes: A1C VALUE INTERPRETATION <5.7% Consistent with the absence of diabetes 5.7 - 6.4% Consistent with increased risk for diabetes (prediabetes) > or=6.5% Consistent with diabetes Currently, no consensus exists regarding use of hemoglobin A1C for diagnosis of diabetes in children. 44 LDL-CHOLESTEROL RISK CATEGORY* GOAL VERY HIGH (E.G. DIABETES + CVD) <70 MG/DL HIGH (DIABETICS; CHD RISK EQUIVALENTS) <100 MG/DL MODERATELY HIGH (MULTIPLE(2+) RISK FACTORS) <130 MG/DL 0 TO 1 RISK FACTORS <160 MG/DL * NCEP REPORT. CIRCULATION 2004; 110: [phone] 45 REFERENCE RANGES BELOW ARE APPLICABLE TO FEMALES FIRST TRIMESTER - 0.26 - 2.66 mIU/L SECOND TRIMESTER - 0.55 - 2.73 mIU/L THIRD TRIMESTER - 0.43 - 2.91 mIU/L 46 The upper reference limit for Creatinine is approximately 13% higher for people identified as -[place]. 47 LDL-CHOLESTEROL RISK CATEGORY* GOAL VERY HIGH (E.G. DIABETES + CVD) <70 MG/DL HIGH (DIABETICS; CHD RISK EQUIVALENTS) <100 MG/DL MODERATELY HIGH (MULTIPLE(2+) RISK FACTORS) <130 MG/DL 0 TO 1 RISK FACTORS <160 MG/DL * NCEP REPORT. CIRCULATION 2004; 110: 227-239 48 REFERENCE RANGES BELOW ARE APPLICABLE TO FEMALES FIRST TRIMESTER - 0.26 - 2.66 mIU/L SECOND TRIMESTER - 0.55 - 2.73 mIU/L THIRD TRIMESTER - 0.43 - 2.91 mIU/L 49 Note: Persistent reduction for 3 months or more in an eGFR <60 mL/min/1.73 m2 defines CKD. Patients with eGFR values >/=60 mL/min/1.73 m2 may also have CKD if evidence of persistent proteinuria is present. The original MDRD equation for estimated GFR is not valid for patients less than 18 years of age. Additional information may be found at www.kdoqi.org. Procedures Date Code Description Status 03/12/2018 51066 EKG-Tracing & Report Completed 03/10/2018 01942 Non-Invcorrotid/Comp /Bilat Study Completed 03/07/2018 80682 Echocardiography Completed 03/06/2018 69289 Dxa Bone Density [employer] Vertebral Fracture Completed Assessment 11/06/2016 49852 Spirometry Graphic Record/Max Voluntary Vent Completed 11/06/2016 83176 EKG-Tracing & Report Completed 10/30/2016 73057 Non-Invcorrotid/Comp /Bilat Study Completed 10/30/2016 60918 Echocardiography Completed 11/29/2015 80175 EKG-Tracing & Report Completed 11/10/2015 74136 Non-Invcorrotid/Comp /Bilat Study Completed 11/08/2015 87701 Echocardiography Completed 04/05/2015 97813 Therapeutic,Prophylactic Intramuscular Inj Completed 03/28/2015 81795 Spirometry Graphic Record/Max Voluntary Vent Completed 03/24/2015 29435 Bone Density Completed 03/24/2015 072866509 Bone Mineral Density Test Completed 03/23/2015 19436 Spirometry Graphic Record/Max Voluntary Vent Completed 05/17/2014 79455 Non-Invcorrotid/Comp /Bilat Study Completed 05/14/2014 23975 EKG-Tracing & Report Completed 05/10/2014 51842 Echocardiography Completed Encounters Type Date Location Provider Dx Diagnosis Office Visit 09/24/2018 Main Office Flores Baez M.D. 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 unspecified H66.91 Otitis media, unspecified, right ear L20.9 Atopic dermatitis, unspecified Office Visit 06/03/2017 10:30a Main Office Flores Baez, M79.674 Pain in right M.D. toe(s) Office Visit 05/14/2017 10:15a Main Office Flores Baez, S92.414B Nondisp fx of M.D. prox phalanx of r great toe, init for opn fx M17.11 Unilateral primary osteoarthritis, right knee Office Visit 04/17/2017 2:00p Main Office Flores Baez, S92.414B Nondisp fx of M.D. prox phalanx of r great toe, init for opn fx L20.9 Atopic dermatitis, unspecified Office Visit 11/13/2016 1:45p Main Office Flores Baez, H66.91 Otitis media, M.D. unspecified, right ear E78.5 Hyperlipidemia, unspecified E03.9 Hypothyroidism, unspecified J20.9 Acute bronchitis, unspecified Z72.0 Tobacco use B33.23 Viral pericarditis Office Visit 05/10/2016 11:45a Main Office Flores Baez, J31.2 Chronic pharyngitis M.D. J44.9 Chronic obstructive pulmonary disease, unspecified Office Visit 05/01/2016 3:00p Main Office Flores Baez, H66.91 Otitis media, M.D. unspecified, right ear J44.9 Chronic obstructive pulmonary disease, unspecified E03.9 Hypothyroidism, unspecified Office Visit 12/06/2015 11:15a Main Office Flores Baez, I65.23 Occlusion and M.D. stenosis of bilateral carotid arteries J44.9 Chronic obstructive pulmonary disease, unspecified R05 Cough E03.9 Hypothyroidism, unspecified I31.3 Pericardial effusion (noninflammatory) I11.9 Hypertensive heart disease without heart failure Office Visit 11/07/2015 10:15a Main Office Flores Baez, J32.9 Chronic sinusitis, M.D. unspecified E03.9 Hypothyroidism, unspecified E78.5 Hyperlipidemia, unspecified I51.7 Cardiomegaly Office Visit 10/12/2015 10:45a Main Office Flores Baez, S61.012A Laceration w/o fb M.D. of left thumb w/o damage to nail, init J20.9 Acute bronchitis, unspecified B30.9 Viral conjunctivitis, unspecified Office Visit 05/18/2015 3:00p Main Office Flores Baez M.D. 461.8 Sinusitis Acute Other 716.96 Arthropathy Unspec Lower Leg Office Visit 05/11/2015 2:00p Main Office Flores Baez, 716.96 Arthropathy Unspec M.D. Lower Leg 244.9 Hypothyroidism Other Unspec 780.79 Malaise And Fatigue Other Office Visit 04/05/2015 2:15p Main Office Flores Baez, 272.4 Hyperlipidemia Other M.D. Unspec 244.9 Hypothyroidism Other Unspec 790.21 Impaired Fasting Glucose 780.79 Malaise And Fatigue Other 281.1 Vitamin B12 Deficiency Anemia Other Office Visit 01/04/2015 2:15p Main Office Flores Baez, 009.1 Colitis Enteritis & M.D. Gastroenteritis Presumed Infectious Orig 473.90 Sinusitis Office Visit 10/05/2014 10:00a Main Office Flores Baez, 272.4 Hyperlipidemia Other M.D. Unspec 250.00 Diabetes Mellitus W/O Compl Type II Or Unspec Controlled 244.9 Hypothyroidism Other Unspec 473.90 Sinusitis Office Visit 09/14/2014 10:30a Main Office Flores Baez, 272.4 Hyperlipidemia Other M.D. Unspec 250.00 Diabetes Mellitus W/O Compl Type II Or Unspec Controlled 244.9 Hypothyroidism Other Unspec V04.81 Need For Prophylactic Vaccination & Inoculation/Influenza Office Visit 07/15/2014 11:00a Main Office Flores Baez M.D. 380.40 Ear Wax 272.4 Hyperlipidemia Other Unspec 250.00 Diabetes Mellitus W/O Compl Type II Or Unspec Controlled 244.9 Hypothyroidism Other Unspec 401.1 Hypertension Benign Office Visit 05/25/2014 11:30a Main Office Flores Baez, 272.4 Hyperlipidemia Other M.D. Unspec 790.21 Impaired Fasting Glucose 250.00 Diabetes Mellitus W/O Compl Type II Or Unspec Controlled 473.90 Sinusitis 793.80 Unspecified Abnormal Mammogram 305.1 Tobacco Use Disorder 244.9 Hypothyroidism Other Unspec 401.1 Hypertension Benign 278.02 Overweight 466.0 Bronchitis Acute 715.90 Degenerative Joint Disease Genlzd Or Localzd Site Unspec Plan of Treatment 10/01/2018 - Flores Baez M.D.D72.829 Elevated white blood cell count, unspecifiedNew Labs:CBC W/ Diff & PLT, Ordered: 10/01/18Comments:see note above was seen in ER 09/19 for sinusitis and abdominal pain. Peripheral smear was reportedas consistent with acute viral infection, follow up cbc with diff ordered
--- OUTSIDE RECORDS SUMMARY | 2018-10-23 15:57 | XMS REPORT | Continuity of Care Document ---
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 Nebulizer 12/06/ Active Device 1unit as J44.9 Flores 2015 s directed Samanta Baez Amlodipine 05/25/ Active Tablets 5mg 90tab 1 By Flores Besylate 2013 s Mouth Gauss, Every Day M.D. Levothyroxine 05/25/ Active Tablets 88mcg 90tab 1 By Flores Sodium 2013 s Mouth Gauss, Every Day M.D. Lisinopril 05/25/ Active Tablets 20mg 90tab Take 1 Flores 2013 s Tablet By Michelle Baez M.D. Every Day Aspirin Adult 00/00/ Active Tablets DR 81mg 1 by Unknown Low Dose 0000 mouth every day Tylenol Extra / Active Tablets 500mg take two Unknown Strength 0000 tablets by mouth every 6 days as needed Ciprofloxacin 03/24/ Hx Tablets 500mg 45tab 1 by H66.92 Flores PAYNE 2017 - s mouth Gauss, 09/24/ twice a M.D. 2017 day Acetaminophen-Co 03/24/ Hx Tablets 300-30mg 60tab 1 by H66.92 Flores roberson #3 2017 - s mouth Gauss, 09/24/ every 6 M.D. 2018 hours as needed for pain Claritin 02/17/ Hx Capsules 10mg 14cap 1 by H65.03 Anderson Arreguin 2018 - s michelle Baez MD 10/08/ every day 2018 Ciprofloxacin 02/17/ Hx Tablets 500mg 14tab 1 by H65.03 Anderson PAYNE 2017 - s michelle Baez MD 03/24/ twice a 2017 day Ciprofloxacin 11/12/ Hx Tablets 500mg 30tab [...] 60tab 1 po Z72.0 Flores (Smoking Det) 2015 - HR s twice a Gauss, 09/24/ day M.D. 2017 Ciprofloxacin 05/10/ Hx Tablets 500mg 30tab 1 by J31.2 Flores HCL 2015 - s mouth Gauss, 05/14/ twice a M.D. 2017 day Albuterol 12/06/ Hx Nebulizer (2.5mg/3ML 60uni 1 four J44.9 Flores Sulfate 2015 - ) 0.083% ts times a Gauss, 11/12/ day as M.D. 2017 needed Clarithromycin 11/07/ Hx Tablets 500mg 60tab 1 by J31.2 Flores 2015 - s mouth Gauss, 05/10/ twice a M.D. 2015 day with food Cortisporin 10/12/ Hx Solution 3.5-00815- 5ml 1 drop to B30.9 Flores 2014 - 1 affected Gauss, 11/04/ eyes 4 x M.D. 2014 daily Azithromycin 05/18/ Hx Tablets 250mg 6tabs 2 by 461.8 Flores 2015 - mouth Gauss, 11/04/ today, 1 M.D. 2014 by mouth day 2 thru 5 Meloxicam 05/11/ Hx Tablets 15mg 30tab 1 by M12.9 Flores 2015 - s mouth Gauss, 11/12/ every day [...] Solution 0.65% 45ml 1 spray J32.9 Flores Gridley 2014 - each Gauss, 02/17/ nostril M.D. 2017 every 2 hours as needed Levothyroxine 05/25/ Hx Tablets 75mcg 90tab 1 by Flores Sodium 2013 - s mouth Gauss, 05/25/ every day M.D. 2013 Azithromycin 05/25/ Hx Tablets 250mg 6tabs 2 by 473.90 Flores 2013 - mouth Gauss, 07/15/ today, 1 M.D. 2013 by mouth day 2 thru 5 Glucosamine 05/25/ Hx Tablets 1 by moth 715.90 Flores Chondroitin MSM 2013 - 2 x daily Gauss, Advanced Triple 09/24/ M.D. Strength 2018 Meloxicam 05/25/ Hx Tablets 7.5mg 90tab 1 by 716.96 Flores 2013 - s mouth Sasha, 05/11/ every day M.D. 2014 with food Levothyroxine 05/25/ Hx Tablets 88mcg 90tab Take 1 Flores Sodium 2013 - s Tablet By Sasha, 09/24/ Mouth M.D. 2017 Every Day Ciprofloxacin / Hx Tablets 500mg 14tab 1 by J32.9 Flores HCL - s mouth Sasha, 11/07/ twice a M.D. 2014 day Metronidazole / Hx Tablets 500mg 1 by Unknown 0000 - mouth three 2017 times a day Clopidogrel / Hx Tablets 75mg 1 by Unknown Bisulfate 0000 - mouth day 2017 Levofloxacin / Hx Tablets 500mg tab 1 by Unknown 0000 - mouth every day 2017 Medications Administered in Office Medication Date Status Form Strength Qnty SIG Indications Ordering Provider B-12 Injection Administered Injection Flores Baez M.D. Immunizations CPT Code Status Date Vaccine Lot # [id number] Given 10/08/2018 Influenza Virus (Afluria) Split Virus 3 Years Of [id number] Age And Older [id number] Given 10/03/2015 Tetanus,Diphtheria,Adut/Adol Pertussis [id number] Given 09/14/2014 Influenza Vaccine (Fluvirin) 2 Years Of Age [place] [id number] Older Vital Signs Date Vital Result Comment 10/08/2018 11:32am BP Systolic 132 mmHg BP Diastolic 76 mmHg Height 66 inches 5'6" Weight 184.00 lb BMI (Body Mass Index) 29.7 kg/m2 09/24/2018 1:45pm BP Systolic 150 mmHg BP [...] Date Facility Test Result H/L Range Note CBC W/ Diff & 10/02/2018 [facility] WBC 16.9 thous/L High 3.8-10.[address] [place] [address] [phone] RBC 5.35 mill/L High 3.80-5.10 Hemoglobin 15.5 g/dL 11.7-15.5 Hematocrit 47.6 % High 35.0-45.0 MCV 89.0 FL 80.0-100.0 MCH 28.9 pg 27.0-33.0 MCHC 32.5 g/dL 32.0-36.0 RDW 15.2 % High 11.0-15.0 Platelet Count 326 thous/L 140-400 MPV 9.3 FL 7.5-12.5 Neutrophils,Absolute 7320 cells/L [phone] Bands,Absolute PENDING Metamyelocytes,Absolute PENDING Myelocytes,Absolute PENDING Promyelocytes,Absolute PENDING Lymphocytes,Absolute 8270 cells/L High 850-3900 Monocytes,Absolute 1010 cells/L High 200-950 Eosinophils,Absolute 250 cells/L 15-500 Basophils,Absolute 50 cells/L 0-200 Blast Cells,Absolute PENDING Nucleated RBC,Absolute PENDING Total Neutrophils,% 43 % 40-75 Bands,% PENDING Metamyelocytes,% PENDING Myelocytes,% PENDING Promyelocytes,% PENDING Total Lymphocytes,% 49 % High 12-47 Reactive Lymphocytes PENDING Monocytes,% 6 % 4-12 Eosinophils,% 2 % 0-4 Basophils,% 0 % 0-1 1 Blasts,% PENDING Nucleated RBC PENDING Comment PENDING Comprehensive 09/19/2018 [facility] Glucose 107 mg/ dL High 74-106 2 Metabolic Panel [address] [place] [address] [phone] BUN 11 mg/dL 7-18 Creatinine 0.8 mg/dL 0.6-1.3 Glom Filtration Rate, Estimate >60 mL/min >60 If >60 mL/min >60 3 BUN/Creat 13.7 ratio Sodium 140 mmol/L 136-145 Potassium 4.6 mmol/L 3.5-5.1 Chloride 105 mmol/L 98-107 Carbon Dioxide 28 mmol/L 21-32 Anion Gap 7 mEq/L Low 8-16 Calcium 8.6 mg/dL 8.5-10.1 Total Protein 7.2 g/dL 6.4-8.2 Albumin 3.7 g/dL 3.4-5.0 Globulin 3.5 g/dL 1.9-4.3 Alb/Glob 1.1 ratio Bilirubin,Total 0.4 mg/dL 0.2-1.0 Sgot/Ast 31 U/L 15-37 SGPT/Alt 57 U/L 12-78 Alkaline Phosphatase 90 U/L 45-117 Laboratory test 09/19/2018 [facility] Lipase 128 U/L 56-[address] [place] [address] [phone] Troponin-I < 0.015 ng/mL 4 Laboratory test 09/19/2018 [facility] Point of Care 104 mg/dL High 70-100 [address] Glucose [place], [place] [id number] [phone] Ua RFX Micro & 09/19/2018 [facility] Urine Color YELLOW Yellow Culture II [address] [place] [address] [phone] Urine Clarity CLEAR Clear Urine Glucose - Dipstick NEGATIVE mg/dL Negative Urine Bilirubin - Dipstick NEGATIVE Negative Urine Ketone NEGATIVE mg/dL Negative Urine Specific Tripp 1.025 1.010-1.030 Urine Blood NEGATIVE Negative Urine PH 5.5 Low 6.5-7.5 Urine Protein - Dipstick NEGATIVE mg/dL Negative Urine Urobilinogen - Dipstick 0.2 E.U./dL 0.2-1.0 Urine Nitrite - Dipstick NEGATIVE Negative Urine Leuk Esterase NEGATIVE Negative Source: URINE, CLEAN CAT <SEE NOTE> 6 Protime 09/19/2018 [facility] Protime 12.4 seconds 12.0-14.[address] [place] [address] [phone] Inr 0.9 0.9-1.1 8 Differential-WBC 09/19/2018 [facility] Total Cells 100 #CELLS Confirm [address] Counted MICHAEL Solomon [id number] [phone] Band% 1 % 0-8 Neutrophils% 49 % 33-73 Lymph% 35 % 20-42 Atypical Lymph% 12 % High 0-7 Monocyte% 3 % 0-10 Platelet Estimate NORMAL RBC Morphology NORMAL Path Review: 09/19/2018 [facility] Path Review: INDICATED,SLIDE [address] <SEE NOTE> MICHAEL Solomon [phone] Slide Review 09/19/2018 [facility] Slide Review DIFF ORDERED [address] MICHAEL Solomon [id number] [phone] CBS 09/19/2018 [facility] White Blood 18.5 K/uL High 3.1- W/Automated [address] Count 10.7 Diff MICHAEL Solomon [id number] [phone] Red Blood Count 5.37 M/uL 3.90-5.40 Hemoglobin [...] 40.4-72.8 Lymph % 48.2 % High 20.0-42.0 Talbot % 7.5 % 4.3-13.2 Eo% 1.5 % 0.0-6.6 Bas% 0.3 % 0.0-1.1 Neut# 7.88 K/uL High 1.8-7.0 Lymph # 8.91 K/uL High 1.0-4.0 Talbot # 1.39 K/uL High 0.3-0.9 Eos # 0.27 K/uL 0.0-0.5 Baso # 0.05 K/uL 0.0-0.1 Lipid Panel 03/12/2018 [facility] Cholesterol 259 mg/dL High <[address] [place] [address] [phone] HDL Cholesterol 57 mg/dL >50 Cholesterol/HDL Ratio 4.5 CALC <5.0 LDL Chol,Calculated 160 mg/dL High 0-100 11 Triglycerides 247 mg/dL High <150 Non-HDL Cholesterol 202 mg/dL High <130 12 TSH & T4,Free 03/12/2018 [facility] TSH 4.61 mIU/L High 0.40-4.50 13 [address] [facility] [place] [address] [phone] T4,Free 1.4 ng/dL 0.8-1.8 Basic Metabolic Panel 03/12/2018 [facility] Sodium 140 mmol/L 135-[address] [place] [address] [phone] Potassium 4.6 mmol/L 3.5-5.3 Chloride 102 mmol/L 98-110 Carbon Dioxide 28 mmol/L 20-31 Calcium 10.0 mg/dL 8.6-10.4 Glucose 97 mg/dL 65-99 14 Urea Nitrogen (BUN) 15 mg/dL 7-25 Creatinine 0.89 mg/dL 0.50-0.99 15 BUN/Creatinine Ratio 16.5 6-22 Egfr Non-Afr. Israeli 66 ML/MIN/1.73M2 > Or=60 Egfr 77 ML/MIN/1.73M2 > Or=60 Laboratory test 03/12/2018 [facility] Hemoglobin A1c 5.9 % High 0-5.6 [address] [place] [address] [phone] Vitamin B12,Serum 409 pg/mL 200-1100 CBC W/ Diff & PLT 03/12/2018 [facility] WBC 16.4 thous/L High 3.8-10.[address] [place] [address] [phone] RBC 5.49 mill/L High 3.80-5.10 Hemoglobin 16.1 g/dL High 11.7-15.5 Hematocrit 50.3 % High 35.0-45.0 MCV 91.7 FL 80.0-100.0 MCH 29.3 pg 27.0-33.0 MCHC 31.9 g/dL Low 32.0-36.0 RDW 14.0 % 11.0-15.0 Platelet Count 368 thous/L 140-400 Platelet Sufficiency PENDING MPV 8.7 FL 7.5-12.5 Neutrophils,Absolute 7600 cells/L 5688-6630 Bands,Absolute PENDING Metamyelocytes,Absolute PENDING Myelocytes,Absolute PENDING Promyelocytes,Absolute [...] Vitamin 19 ng/mL Low 30-100 25-Hydroxyvitamin [address] D,25-Oh,Total D(D2,D3) [place], [place] [id number] [phone] Vitamin D,25-Oh,D3 19 ng/mL Vitamin D,25-Oh,D2 <4 ng/mL 18 Hepatic Function 05/07/2017 [facility] Alkaline Phosphatase 82 U/L 33- [address] [place], [place] [id number] [phone] Ast 20 U/L 10-35 Alt 33 U/L High 6-29 Bilirubin,Total 0.5 mg/dL 0.2-1.2 Bilirubin,Direct 0.1 mg/dL < Or=0.2 Protein,Total 6.9 g/dL 6.1-8.1 Albumin 4.3 g/dL 3.6-5.1 Globulin,Calculated 2.6 g/dL 1.9-3.7 A/G Ratio 1.7 1.0-2.5 Laboratory test 05/07/2017 [facility] Hemoglobin A1c 5.9 % High 0-5.6 [address] [place] [address] [phone] TSH & T4,Free 05/07/2017 [facility] TSH 3.06 0.40-4.[address] mIU/[place] [address] [phone] T4,Free 1.4 ng/dL 0.8-1.8 Laboratory test 05/07/2017 [facility] Vitamin 432 pg/mL 200-[address] B12,[place] [address] [phone] Basic Metabolic 05/07/2017 [facility] Sodium 140 mmol/L 135-[address] [place] [address] [phone] Potassium 4.5 mmol/L 3.5-5.3 Chloride 103 mmol/L 98-110 Carbon Dioxide 26 mmol/L 20-31 Calcium 9.4 mg/dL 8.6-10.4 Glucose 94 mg/dL 65-99 21 Urea Nitrogen 14 mg/dL 7-25 Creatinine 0.74 mg/dL 0.50-0.99 22 BUN/Creatinine Ratio 18.2 6-22 Egfr Non-Afr. Israeli 83 ML/MIN/1.73M2 > Or=60 Egfr 96 ML/MIN/1.73M2 > Or=60 Lipid Panel 11/06/2016 [facility] Cholesterol 249 mg/dL High 125-[address] [place] [address] [phone] HDL Cholesterol 55 mg/dL > Or=46 Cholesterol/HDL Ratio 4.5 < Or=5.0 LDL Chol,Calculated 148 mg/dL High <130 23 Triglycerides 229 mg/dL High <150 Non-HDL Cholesterol 193 mg/dL High 24 TSH & T4,Free 11/06/2016 [facility] TSH 2.30 mIU/L 0.40-4.[address] [place] [address] [phone] T4,Free 1.3 ng/dL 0.8-1.8 CBC W/ Diff & PLT 11/06/2016 [facility] WBC 11.2 thous/L High 3.8-10.8 [address] [place] [place] [address] [phone] RBC 5.37 mill/L High 3.80-5.10 Hemoglobin 15.3 g/dL 11.7-15.5 Hematocrit 46.9 % High 35.0-45.0 MCV 87.3 FL 80.0-100.0 MCH 28.5 pg 27.0-33.0 MCHC 32.6 g/dL 32.0-36.0 RDW 13.8 % 11.0-15.0 Platelet Count 309 thous/L 140-400 Platelet Sufficiency PENDING MPV 9.0 FL 7.5-11.5 Neutrophils,Absolute 6430 cells/L 3092-7564 Bands,Absolute PENDING Metamyelocytes,Absolute PENDING Myelocytes,Absolute PENDING Promyelocytes,Absolute [...] [facility] Sodium 140 mmol/L 135-146 [address] [place] [address] [phone] Potassium 4.5 mmol/L 3.5-5.3 Chloride 102 mmol/L 98-110 Carbon Dioxide 28 mmol/L 20-31 Calcium 9.7 mg/dL 8.6-10.4 Glucose 94 mg/dL 65-99 27 Urea Nitrogen 11 mg/dL 7-25 Creatinine 0.86 mg/dL 0.50-0.99 28 BUN/Creatinine Ratio 12.8 6-22 Egfr Non-Afr. Israeli 70 ML/MIN/1.73M2 > Or=60 Egfr 81 ML/MIN/1.73M2 > Or=60 BMP W/O Egfr 11/29/2015 [facility] Sodium 137 mmol/L 135-[address] [place] [address] [phone] Potassium 4.4 mmol/L 3.5-5.3 Chloride 101 mmol/L 98-110 Carbon Dioxide 27 mmol/L 19-30 Calcium 10.0 mg/dL 8.6-10.4 Glucose 90 mg/dL 65-99 29 Urea Nitrogen 11 mg/dL 7-25 Creatinine 0.76 mg/dL 0.50-0.99 30 BUN/Creatinine Ratio 14.6 6-22 BMP W/O Egfr 10/31/2015 [facility] Sodium 138 mmol/L 135-[address] [place] [address] [phone] Potassium 4.5 mmol/L 3.5-5.3 Chloride 100 mmol/L 98-110 Carbon Dioxide 27 mmol/L 19-30 Calcium 9.6 mg/dL 8.6-10.4 Glucose 79 mg/dL 65-99 31 Urea Nitrogen 12 mg/dL 7-25 Creatinine 0.69 mg/dL 0.50-0.99 32 BUN/Creatinine Ratio 17.7 6-22 Laboratory test 06/28/2015 [facility] Polyp Colon See Note [address] [place] [address] [phone] Arthritis Profile 05/11/2015 [facility] Rheumatoid Factor 8 IU/mL <[address] [place] [address] [phone] Uric Acid 4.3 mg/dL 2.5-7.0 34 Anti-Streptolysin O 136 IU/mL <201 Selam Screen NEGATIVE Negative Iron Deficiency Profile 05/11/2015 [facility] Iron,Total 78 g/dL 45- [address] [place] [address] [phone] Tibc 398 g/dL 250-450 % Saturation 20 % 11-50 Ferritin 97 NG/ML 20-288 TSH & T4,Free 05/11/2015 [facility] TSH 3.51 mIU/L 0.40-4.[address] [place] [address] [phone] T4,Free 1.6 ng/dL 0.8-1.8 Laboratory test finding 03/28/2015 [facility] Glucose 81 mg/dL 65-[address] [place] [address] [phone] Direct LDL 151 mg/dL High <130 37 Basic Metabolic Panel 12/29/2014 [facility] Glucose 99 mg/dL 74-[address] [place] [address] [phone] BUN 6 mg/dL Low 7-18 Creatinine 0.7 mg/dL 0.6-1.3 Glom Filtration Rate, Estimate >60 mL/min >60 If >60 mL/min >60 38 BUN/Creat 8.5 ratio Sodium 140 mmol/L 136-145 Potassium 3.8 mmol/L 3.5-5.1 Chloride 108 mmol/L High 98-107 Carbon Dioxide 24 mmol/L 21-32 Anion Gap 12 mEq/L 8-16 Calcium 8.8 mg/dL 8.5-10.1 Basic Metabolic Panel 12/28/2014 [facility] Glucose 92 mg/dL 74-[address] [place] [address] [phone] BUN 8 mg/dL 7-18 Creatinine 0.8 mg/dL 0.6-1.3 Glom Filtration Rate, Estimate >60 mL/min >60 If >60 mL/min >60 39 BUN/Creat 10.0 ratio Sodium 138 mmol/L 136-145 Potassium 3.8 mmol/L 3.5-5.1 Chloride 105 mmol/L 98-107 Carbon Dioxide 26 mmol/L 21-32 Anion Gap 11 mEq/L 8-16 Calcium 8.4 mg/dL Low 8.5-10.1 CBC W/Automated 12/28/2014 [facility] White Blood 13.3 K/uL High 3.1-10.[address] [place] [place] [address] [phone] Red Blood Count 4.68 M/uL 3.90-5.40 Hemoglobin [...] % 40.4-72.8 Lymph % 17.3 % 17.0-46.1 Talbot % 11.6 % 4.3-13.2 Eo% 1.6 % 0.0-6.6 Bas% 0.3 % 0.0-1.1 Neut# 9.23 K/uL High 1.0-7.0 Lymph # 2.31 K/uL 0.8-3.4 Talbot # 1.55 K/uL High 0.3-0.9 Eos # 0.21 K/uL 0.0-0.5 Baso # 0.04 K/uL 0.0-0.1 Influenza A & B 12/17/2014 [facility] Influenza A Negative (Negative) Antigen [address] [place] [address] [phone] Influenza B Antigen Negative (Negative) 40 BMP W/O Egfr 09/28/2014 [facility] Sodium 139 mmol/L 135-[address] [place], [place] [address] [phone] Potassium 5.1 mmol/L 3.5-5.3 Chloride 105 mmol/L 98-110 Carbon Dioxide 28 mmol/L 19-30 Calcium 9.5 mg/dL 8.6-10.4 Glucose 80 mg/dL 65-99 41 Urea Nitrogen 14 mg/dL 7-25 Creatinine 0.75 mg/dL 0.50-0.99 42 BUN/Creatinine Ratio 18.4 6-22 Laboratory test 09/28/2014 [facility] Hemoglobin A1c 5.9 % High 0.0-5.6 [address] [place], [place] [address] [phone] Direct LDL 150 mg/dL High <130 44 CBC W/ Diff & PLT 09/28/2014 [facility] WBC 9.1 thous/L 3.8-10.[address] [place], [place] [address] [phone] RBC 5.04 mill/L 3.80-5.10 Hemoglobin 14.9 g/dL 11.7-15.5 Hematocrit 44.6 % 35.0-45.0 MCV 88.5 FL 80.0-100.0 MCH 29.5 pg 27.0-33.0 MCHC 33.4 g/dL 32.0-36.0 RDW 13.9 % 11.0-15.0 Platelet Count 359 thous/L 140-400 Platelet Sufficiency PENDING Neutrophils,Absolute 5910 cells/L 7583-2290 Bands,Absolute PENDING Metamyelocytes,Absolute PENDING Myelocytes,Absolute PENDING Promyelocytes,Absolute [...] Lab Iron,Total 93 g/dL 45-[address] [place], [place] [address] [phone] TSH & T4,Free 09/28/2014 [facility] TSH 2.43 mIU/L 0.40-4.50 45 [address] [facility] [place] [address] [phone] T4,Free 1.5 ng/dL 0.8-1.8 Creatinine 09/15/2014 [facility] Creatinine 1.02 mg/dL High 0.50-0.99 46 W/Egfr [address] [place] [address] [phone] Egfr Non-Afr. Israeli 58 ML/MIN/1.73M2 Low > Or=60 Egfr 67 ML/MIN/1.73M2 > Or=60 Laboratory test 09/15/2014 [facility] Urea Nitrogen 17 mg/dL 7-[address] [place] [address] [phone] Laboratory test 06/25/2014 [facility] Direct LDL 152 mg/dL High <130 [address] [place] [address] [phone] TSH & T4,Free 06/25/2014 [facility] TSH 2.38 mIU/L 0.40-4.[address] [place] [address] [phone] T4,Free 1.8 ng/dL 0.8-1.8 Laboratory test 05/14/2014 [facility] Thyroid Stim 5.37 uIU/mL High 0.49-4.[address] [place] [address] [phone] Free T4 1.20 ng/dL 0.71-1.85 LDL Cholesterol 05/14/2014 [facility] Cholesterol 205 mg/dL High 120-[address] [place] [address] [phone] Triglycerides 136 mg/dL 16-231 HDL Cholesterol 45 mg/dL 29-83 LDL-Cholesterol 133 mg/dL 62-185 Laboratory test 05/14/2014 [facility] Sedimentation Rate 3 mm/hr 0-[address] [place] [address] [phone] Basic Metabolic 05/14/2014 [facility] Glucose 95 mg/ dL 76-[address] [place] [address] [phone] BUN 11 mg/dL 5-23 Creatinine 0.7 mg/dL 0.5-1.4 Glom Filtration Rate, Estimate >60 mL/min >60 If >60 mL/min >60 49 BUN/Creat 15.7 ratio Sodium 139 mmol/L 136-145 Potassium 4.2 mmol/L 3.5-5.1 Chloride 104 mmol/L 98-107 Carbon Dioxide 29 mEq/L 18-29 Anion Gap 10 mEq/L 8-16 Calcium 9.6 mg/dL 8.5-10.1 CBC W/ Diff & 05/14/2014 [facility] White Blood 9.9 K /uL 3.1-10.[address] [place] [place] [address] [phone] Red Blood Count 5.11 M/uL 3.90-5.40 Hemoglobin [...] % 40.4-72.8 Lymph % 25.2 % 17.0-46.1 Talbot % 10.8 % 4.3-13.2 Eo% 3.2 % 0.0-6.6 Bas% 0.4 % 0.0-1.1 Neut# 5.98 K/uL 1.0-7.0 Lymph # 2.49 K/uL 0.8-3.4 Talbot # 1.07 K/uL High 0.3-0.9 Eos # 0.32 K/uL 0.0-0.5 Baso # 0.04 K/uL 0.0-0.1 1 Relative blood cell counts (%) should be compared with absolute cell counts (cells/mcL). Relative counts may not be clinically meaningful if the absolute count of one or more cell type is decreased. Reference ranges for relative cell counts derived from: A Manual of Laboratory and Diagnostics Tests, 9th Ed, [employer] Jadon & Wyman, 2015. Pediatric Reference Intervals, 7th Ed, [facility] Press, 2011. 2 SENT BY [facility] ABD AND SOB 3 Note: Persistent reduction for 3 months or more in an eGFR <60 mL/min/1.73 m2 defines CKD. Patients with eGFR values >/=60 mL/min/1.73 m2 may also have CKD if evidence of persistent proteinuria is present. The original MDRD equation for estimated GFR is not valid for patients less than 18 years of age. Additional information may be found at www.kdoqi.org. 4 0.0 - 0.045 ng/mL: Normal 0.046 - 0.5 ng/mL: Suggestive 0.6 - 1.5 ng/mL: Consistent 5 Mouse Breeder: [id number] 6 URINE, CLEAN CATCH 7 SENT BY [facility] IN ABD AND SOB ABD PAIN, LEUKOCYTOCIS 8 THERAPEUTIC INR RANGE: 2.0 - 3.0 DVT, Pulmonary embolus, prophylaxis against venous thrombosis or systemic embolization in high risk patients. 2.5 - 3.5 Mechanical heart valves 9 INDICATED,SLIDE SENT Reviewed previous history, path review indicated Hematology Consultation - Final Report Case# [id number] FINAL DIAGNOSIS REVIEW OF PERIPHERAL BLOOD SMEAR Review of peripheral blood smear confirms the hemogram findings. There is mild absolute lymphocytosis. The lymphcytes have reactive appearance. The findings are strongly suggestive of an ACUTE VIRAL INFECTION. This case was reviewed and signed out at [facility], [address] [place] [address]. Vee Guido M.D., Pathologist Reported: 09/22/2018 7:11 PM Report Signed Electronically GROSS DESCRIPTION Peripheral Blood smear CLINICAL DATA Absolute lymphocytosis, mild Abdominal pain and SOB Vee Guido M.D., Pathologist 09/22/2018 7:11 PM Performed at: [facility] [id number] [place] [address] 10 FASTING 11 LDL-C is now calculated using the Keira calculation, which is a validated novel method providing better accuracy than the Friedewald equation in the estimation of LDL-C. Marcial LOVE et al.ALECIA.2013;310(19):4153-5335 Desirable range <100 mg/dL for primary prevention; <70 mg/dL for patients with CHD or diabetic patients with >or=2 CHD risk factors. For additional information, please refer to http://education.itembase.Let[employer] Jock/faq/HJA741(This link is being provided for informational/educational purposes [...] approximately 13% higher for people identified as -Israeli. 16 For someone without known diabetes, a [...] Wyman, 2015. Pediatric Reference Intervals, 7th Ed, [facility] Press, 2011. 18 25-OHD3 indicates both endogenous production and supplementation. 25-OHD2 is an indicator of exogenous sources such as diet or supplementation. Therapy is based on measurement of Total 25-OHD, with levels <20 ng/mL indicative of Vitamin D deficiency while levels between 20 ng/mL and 30 ng/mL suggest insufficiency. Optimal levels are > or=30 ng/mL. For more information on this test, go to http://[employer].Wholesome Pets/faq/DXP522 19 For someone without known diabetes, a [...] approximately 13% higher for people identified as -Israeli. 23 LDL-CHOLESTEROL RISK CATEGORY* GOAL VERY HIGH [...] Wyman, 2015. Pediatric Reference Intervals, 7th Ed, [facility] [employer], 2011. 27 GLUCOSE REFERENCE RANGE BASED ON FASTING SPECIMEN. 28 The upper reference limit for Creatinine is approximately 13% higher for people identified as -Israeli. 29 GLUCOSE REFERENCE RANGE BASED ON FASTING SPECIMEN. 30 The upper reference limit for Creatinine is approximately 13% higher for people identified as -Israeli. 31 GLUCOSE REFERENCE RANGE BASED ON FASTING SPECIMEN. 32 The upper reference limit for Creatinine is approximately 13% higher for people identified as -Israeli. 33 OPERATION/PROCEDURE Colonoscopy, polypectomy DIAGNOSIS: PART 1: [...] approximately 13% higher for people identified as -Israeli. 43 According to ADA guidelines, hemoglobin A1c [...] approximately 13% higher for people identified as -Israeli. 47 LDL-CHOLESTEROL RISK CATEGORY* GOAL VERY HIGH [...] [email or web address]. Procedures Date Code Description Status 03/12/2018 77793 EKG-Tracing & Report Completed 03/10/2018 25651 Non-Invcorrotid/Comp /Bilat Study Completed 03/07/2018 25967 Echocardiography Completed 03/06/2018 89777 Dxa Bone Density [employer] Vertebral Fracture Completed Assessment 11/06/2016 99959 Spirometry Graphic Record/Max Voluntary Vent Completed 11/06/2016 74964 EKG-Tracing & Report Completed 10/30/2016 79737 Non-Invcorrotid/Comp /Bilat Study Completed 10/30/2016 21099 Echocardiography Completed 11/29/2015 37438 EKG-Tracing & Report Completed 11/10/2015 79142 Non-Invcorrotid/Comp /Bilat Study Completed 11/08/2015 70225 Echocardiography Completed 04/05/2015 38035 Therapeutic,Prophylactic Intramuscular Inj Completed 03/28/2015 33715 Spirometry Graphic Record/Max Voluntary Vent Completed 03/24/2015 65767 Bone Density Completed 03/24/2015 380106446 Bone Mineral Density Test Completed 03/23/2015 04513 Spirometry Graphic Record/Max Voluntary Vent Completed 05/17/2014 31009 Non-Invcorrotid/Comp /Bilat Study Completed 05/14/2014 19819 EKG-Tracing & Report Completed 05/10/2014 77638 Echocardiography Completed Encounters Type Date Location Provider Dx Diagnosis Office Visit 09/24/2018 Main Office Flores Baez M.D. 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 I34.0 Nonrheumatic mitral (valve) insufficiency H66.92 Otitis media, unspecified, left ear Office Visit 02/17/2018 1:30p Main Office Anderson Rodríguez Baez, H65.03 Acute serous otitis MD media, [...] Office Visit 04/17/2017 2:00p Main Office Flores Beaz, S92.414B Nondisp fx of M.D. prox phalanx [...] Or Localzd Site Unspec Plan of Treatment 10/08/2018 - Flores Baez M.D.D72.829 Elevated white blood cell count, unspecifiedNew Labs:Miriam Mcpherson Virus Antibody Panel, Ordered: 10/08/18
--- OUTSIDE RECORDS SUMMARY | 2018-10-23 15:58 | XMS REPORT | Continuity of Care Document ---
:1950 External Reference #:[id number] Author Name Rehana Fernandez Care Team Providers Name Role Phone Flores Baez MD Care Team Information Day Worker Unavailable Flores Baez MD Primary Care Physician Unavailable Payers Type Date Identification Numbers Payment Provider Subscriber Policy Number: [id number] [employer] Janna [address] PayID: [id number] [address] [address] [place] [address] Advance Directives Description No Information Available Problems [...] Form Strength Qnty SIG Indications Ordering Provider Claritin 02/17/ Active Capsules 10mg 14cap 1 by H65.03 Anderson Arreguin 2017 s michelle Baez MD every day Nebulizer 12/06/ Active Device 1unit as J44.9 Flores 2015 s yolanda Baez M.D. Amlodipine 05/25/ Active Tablets 5mg 90tab 1 By Flores Besylate 2013 s Mouth Sasha, Every Day M.DKenny Levothyroxine 05/25/ Active Tablets 88mcg 90tab 1 By Flores Sodium 2013 s Mouth Sasha, Every Day M.DKenny Lisinopril 05/25/ Active Tablets 20mg 90tab Take 1 Flores 2013 s Tablet By Michelle Baez.D. Every Day Levofloxacin / Active Tablets 500mg tab 1 by Unknown 0000 mouth every day Aspirin Adult / Active Tablets DR 81mg 1 by Unknown Low Dose 0000 mouth every day Tylenol Extra / Active Tablets 500mg take two Unknown Strength 0000 tablets by mouth every 6 days as needed Ciprofloxacin 03/24/ Hx Tablets 500mg 45tab 1 by H66.92 Flores HCL 2017 - s mouth Gauss, 09/24/ twice a M.D. 2017 day Acetaminophen-Co 03/24/ Hx Tablets 300-30mg 60tab 1 by H66.92 Flores roberson #3 2017 - s mouth Gauss, 09/24/ every 6 M.D. 2018 hours as needed for pain Ciprofloxacin 02/17/ Hx Tablets 500mg 14tab 1 by H65.03 Anderson PAYNE 2017 - s mouth GaMD tano 03/24/ twice a 2017 day Ciprofloxacin 11/12/ [...] Flores HCL 2015 - s mouth Gauss, 06/20/ twice a M.D. 2017 day Albuterol 12/06/ Hx Nebulizer (2.5mg/3ML 60uni 1 four J44.9 Flores Sulfate 2016 - ) 0.083% ts times a Gauss, 11/12/ day as M.D. 2017 needed Clarithromycin 11/07/ Hx Tablets 500mg 60tab 1 by J31.2 Flores 2014 - s mouth Gauss, 05/10/ twice a M.D. 2015 day with food Cortisporin 10/12/ Hx Solution 3.5-65554- 5ml 1 drop to B30.9 Flores 2014 [...] Solution 0.65% 45ml 1 spray J32.9 Flores Mulhall 2014 - each Gauss, 02/17/ nostril M.D. [...] 1 by moth 715.90 Flores Chondroitin MSM 2014 - 2 x daily Gauss, Advanced Triple 09/24/ M.D. Strength 2018 Meloxicam 05/25/ Hx Tablets 7.5mg 90tab 1 by 716.96 Flores 2014 - s mouth Sasha, 05/11/ every day M.D. 2014 with food Levothyroxine 05/25/ Hx Tablets 88mcg 90tab Take 1 Flores Sodium 2014 - s Tablet By Sasha, 09/24/ Mouth M.D. 2017 Every Day Ciprofloxacin / Hx Tablets 500mg 14tab 1 by J32.9 Flores HCL 0000 - s mouth Sasha, 11/07/ twice a M.D. 2014 day Metronidazole / Hx Tablets 500mg 1 by Unknown 0000 - mouth 09/24/ three 2018 times a day Clopidogrel / Hx Tablets 75mg 1 by Unknown Bisulfate 0000 - mouth 09/24/ every day 2017 Medications Administered in Office Medication Date Status Form Strength Qnty SIG Indications Ordering Provider B-12 Injection Administered Injection Flores Baez M.D. Immunizations CPT Code Status Date Vaccine Lot # [id number] Given 10/03/2015 Tetanus,Diphtheria,Adut/Adol Pertussis [id number] Given 09/14/2014 Influenza Vaccine (Fluvirin) 2 Years Of Age [place] [id number] Older Vital Signs Date Vital Result Comment 09/24/2018 1:45pm BP Systolic 150 mmHg BP Diastolic 80 mmHg Heart Rate 83 /min Height 66 inches 5'6" Weight 183.00 lb [...] Result H/L Range Note Laboratory test 09/19/2018 [facility] Point [facility] Care 104 mg/dL High 70-100 [address] Glucose [place], [place] [address] [phone] Ua RFX Micro & 09/19/2018 [facility] Urine Color YELLOW Yellow 2 Culture II [address] [place] [address] [phone] Urine Clarity CLEAR Clear Urine Glucose - Dipstick NEGATIVE mg/dL Negative Urine Bilirubin - Dipstick NEGATIVE Negative Urine Ketone NEGATIVE mg/dL Negative Urine Specific [place] 1.025 1.010-1.030 Urine Blood NEGATIVE Negative Urine PH 5.5 Low 6.5-7.5 Urine Protein - Dipstick NEGATIVE mg/dL Negative Urine Urobilinogen - Dipstick 0.2 E.U./dL 0.2-1.0 Urine Nitrite - Dipstick NEGATIVE Negative Urine Leuk Esterase NEGATIVE Negative Source: URINE, CLEAN CAT <SEE NOTE> 3 Protime 09/19/2018 [facility] Protime 12.4 seconds 12.0-14.[address] [place] [address] [phone] Inr 0.9 0.9-1.1 5 Differential-WBC 09/19/2018 [facility] Total Cells 100 #CELLS Confirm [address] Counted [place] [id number] [phone] Band% 1 % 0-8 Neutrophils% 49 % 33-73 Lymph% 35 % 20-42 Atypical Lymph% 12 % High 0-7 Monocyte% 3 % 0-10 Platelet Estimate NORMAL RBC Morphology NORMAL Path Review: 09/19/2018 [facility] Path Review: INDICATED,SLIDE [address] <SEE NOTE> [place] [address] [phone] Slide Review 09/19/2018 [facility] Slide Review DIFF ORDERED [address] [place] [address] [phone] CBS 09/19/2018 [facility] White Blood 18.5 K/uL High 3.1- W/Automated [address] Count 10.[address] [place] [address] [phone] Red Blood Count 5.37 M/uL 3.90-5.40 Hemoglobin [...] 40.4-72.8 Lymph % 48.2 % High 20.0-42.0 [place] % 7.5 % 4.3-13.2 Eo% 1.5 % 0.0-6.6 Bas% 0.3 % 0.0-1.1 Neut# 7.88 K/uL High 1.8-7.0 Lymph # 8.91 K/uL High 1.0-4.0 [place] # 1.39 K/uL High 0.3-0.9 Eos # 0.27 K/uL 0.0-0.5 Baso # 0.05 K/uL 0.0-0.1 Laboratory test 09/19/2018 [facility] Lipase 128 U/L 56-289 [address] [place], [place] [address] [phone] Troponin-I < 0.015 ng/mL 8 Comprehensive 09/19/2018 [facility] Glucose 107 mg/ dL High 74-106 Metabolic Panel [address] [place], [place] [address] [phone] BUN 11 mg/dL 7-18 Creatinine 0.8 mg/dL [...] Cholesterol 259 mg/dL High <199 10 [address] [facility] [place] [address] [phone] HDL Cholesterol 57 mg/dL >50 Cholesterol/HDL Ratio 4.5 CALC <5.0 LDL Chol,Calculated 160 mg/dL High 0-100 11 Triglycerides 247 mg/dL High <150 Non-HDL Cholesterol 202 mg/dL High <130 12 TSH & T4,Free 03/12/2018 [facility] TSH 4.61 mIU/L High 0.40-4.50 13 [address] [facility] [place] [address] [phone] T4,Free 1.4 ng/dL 0.8-1.8 Basic Metabolic Panel 03/12/2018 [facility] Sodium 140 mmol/L 135-146 [address] [facility] [place] [address] [phone] Potassium 4.6 mmol/L 3.5-5.3 Chloride 102 mmol/L 98-110 Carbon Dioxide 28 mmol/L 20-31 Calcium 10.0 mg/dL 8.6-10.4 Glucose 97 mg/dL 65-99 14 Urea Nitrogen (BUN) 15 mg/dL 7-25 Creatinine 0.89 mg/dL 0.50-0.99 15 BUN/Creatinine Ratio 16.5 6-22 Egfr Non-Afr. [place] 66 ML/MIN/1.73M2 > Or=60 Egfr 77 ML/MIN/1.73M2 > Or=60 Laboratory test 03/12/2018 [facility] Hemoglobin A1c 5.9 % High 0-5.6 16 finding [address] [facility] [place] [address] [phone] Vitamin B12,Serum 409 pg/mL 200-1100 CBC W/ Diff & PLT 03/12/2018 [facility] WBC 16.4 thous/L High 3.8-10.8 [address] [facility] [place] [address] [phone] RBC 5.49 mill/L High 3.80-5.10 Hemoglobin 16.1 g/dL High 11.7-15.5 Hematocrit 50.3 % High 35.0-45.0 MCV 91.7 FL 80.0-100.0 MCH 29.3 pg 27.0-33.0 MCHC 31.9 g/dL Low 32.0-36.0 RDW 14.0 % 11.0-15.0 Platelet Count 368 thous/L 140-400 Platelet Sufficiency PENDING MPV 8.7 FL 7.5-12.5 Neutrophils,Absolute 7600 cells/L [phone] Bands,Absolute PENDING Metamyelocytes,Absolute PENDING Myelocytes,Absolute PENDING Promyelocytes,Absolute [...] Vitamin 19 ng/mL Low 30-100 25-Hydroxyvitamin [address] D,25-Oh,Total D(D2,D3) [place] [address] [phone] Vitamin D,25-Oh,D3 19 ng/mL Vitamin D,25-Oh,D2 <4 ng/mL 18 Hepatic Function 05/07/2017 [facility] Alkaline Phosphatase 82 U/L 33- [address] [place] [address] [phone] Ast 20 U/L 10-35 Alt 33 U/L High 6-29 Bilirubin,Total 0.5 mg/dL 0.2-1.2 Bilirubin,Direct 0.1 mg/dL < Or=0.2 Protein,Total 6.9 g/dL 6.1-8.1 Albumin 4.3 g/dL 3.6-5.1 Globulin,Calculated 2.6 g/dL 1.9-3.7 A/G Ratio 1.7 1.0-2.5 Laboratory test 05/07/2017 [facility] Hemoglobin A1c 5.9 % High 0-5.6 [address] [place] [address] [phone] TSH & T4,Free 05/07/2017 [facility] TSH 3.06 0.40-4.[address] mIU/[place] [address] [phone] T4,Free 1.4 ng/dL 0.8-1.8 Laboratory test 05/07/2017 [facility] Vitamin 432 pg/mL 200-[address] B12,Serum [place], [place] [address] [phone] Basic Metabolic 05/07/2017 [facility] Sodium 140 mmol/L 135-[address] [place] [address] [phone] Potassium 4.5 mmol/L 3.5-5.3 Chloride 103 mmol/L 98-110 Carbon Dioxide 26 mmol/L 20-31 Calcium 9.4 mg/dL 8.6-10.4 Glucose 94 mg/dL 65-99 21 Urea Nitrogen 14 mg/dL 7-25 Creatinine 0.74 mg/dL 0.50-0.99 22 BUN/Creatinine Ratio 18.2 6-22 Egfr Non-Afr. [place] 83 ML/MIN/1.73M2 > Or=60 Egfr 96 ML/MIN/1.73M2 > Or=60 Lipid Panel 11/06/2016 [facility] Cholesterol 249 mg/dL High 125-[address] [place] [address] [phone] HDL Cholesterol 55 mg/dL > Or=46 Cholesterol/HDL Ratio 4.5 < Or=5.0 LDL Chol,Calculated 148 mg/dL High <130 23 Triglycerides 229 mg/dL High <150 Non-HDL Cholesterol 193 mg/dL High 24 TSH & T4,Free 11/06/2016 [facility] TSH 2.30 mIU/L 0.40-4.[address] [place] [address] [phone] T4,Free 1.3 ng/dL 0.8-1.8 CBC W/ Diff & PLT 11/06/2016 [facility] WBC 11.2 thous/L High 3.8-10.8 [address] [place], [place] [address] [phone] RBC 5.37 mill/L High 3.80-5.10 Hemoglobin 15.3 g/dL 11.7-15.5 Hematocrit 46.9 % High 35.0-45.0 MCV 87.3 FL 80.0-100.0 MCH 28.5 pg 27.0-33.0 MCHC 32.6 g/dL 32.0-36.0 RDW 13.8 % 11.0-15.0 Platelet Count 309 thous/L 140-400 Platelet Sufficiency PENDING MPV 9.0 FL 7.5-11.5 Neutrophils,Absolute 6430 cells/L [phone] Bands,Absolute PENDING Metamyelocytes,Absolute PENDING Myelocytes,Absolute PENDING Promyelocytes,Absolute [...] [facility] Sodium 140 mmol/L 135-146 [address] [place] [address] [phone] Potassium 4.5 mmol/L 3.5-5.3 Chloride 102 mmol/L 98-110 Carbon Dioxide 28 mmol/L 20-31 Calcium 9.7 mg/dL 8.6-10.4 Glucose 94 mg/dL 65-99 27 Urea Nitrogen 11 mg/dL 7-25 Creatinine 0.86 mg/dL 0.50-0.99 28 BUN/Creatinine Ratio 12.8 6-22 Egfr Non-Afr. [place] 70 ML/MIN/1.73M2 > Or=60 Egfr 81 ML/MIN/1.73M2 > Or=60 BMP W/O Egfr 11/29/2015 [facility] Sodium 137 mmol/L 135-[address] [place] [address] [phone] Potassium 4.4 mmol/L 3.5-5.3 Chloride 101 mmol/L 98-110 Carbon Dioxide 27 mmol/L 19-30 Calcium 10.0 mg/dL 8.6-10.4 Glucose 90 mg/dL 65-99 29 Urea Nitrogen 11 mg/dL 7-25 Creatinine 0.76 mg/dL 0.50-0.99 30 BUN/Creatinine Ratio 14.6 6-22 BMP W/O Egfr 10/31/2015 [facility] Sodium 138 mmol/L 135-[address] [place] [address] [phone] Potassium 4.5 mmol/L 3.5-5.3 Chloride 100 mmol/L 98-110 Carbon Dioxide 27 mmol/L 19-30 Calcium 9.6 mg/dL 8.6-10.4 Glucose 79 mg/dL 65-99 31 Urea Nitrogen 12 mg/dL 7-25 Creatinine 0.69 mg/dL 0.50-0.99 32 BUN/Creatinine Ratio 17.7 6-22 Laboratory test 06/28/2015 [facility] Polyp Colon See Note [address] [place] [address] [phone] Arthritis Profile 05/11/2015 [facility] Rheumatoid Factor 8 IU/mL <[address] [place] [address] [phone] Uric Acid 4.3 mg/dL 2.5-7.0 34 Anti-Streptolysin O 136 IU/mL <201 [place] Screen NEGATIVE Negative Iron Deficiency Profile 05/11/2015 [facility] Iron,Total 78 g/dL 45- [address] [place] [address] [phone] Tibc 398 g/dL 250-450 % Saturation 20 % 11-50 Ferritin 97 NG/ML 20-288 TSH & T4,Free 05/11/2015 [facility] TSH 3.51 mIU/L 0.40-4.[address] [place], [place] [address] [phone] T4,Free 1.6 ng/dL 0.8-1.8 Laboratory test finding 03/28/2015 [facility] Glucose 81 mg/dL 65-[address] [place], [place] [address] [phone] Direct LDL 151 mg/dL High <130 37 Basic Metabolic Panel 12/29/2014 [facility] Glucose 99 mg/dL 74-[address] [place] [address] [phone] BUN 6 mg/dL Low 7-18 Creatinine 0.7 mg/dL 0.6-1.3 Glom Filtration Rate, Estimate >60 mL/min >60 If >60 mL/min >60 38 BUN/Creat 8.5 ratio Sodium 140 mmol/L 136-145 Potassium 3.8 mmol/L 3.5-5.1 Chloride 108 mmol/L High 98-107 Carbon Dioxide 24 mmol/L 21-32 Anion Gap 12 mEq/L 8-16 Calcium 8.8 mg/dL 8.5-10.1 Basic Metabolic Panel 12/28/2014 [facility] Glucose 92 mg/dL 74-[address] [place] [address] [phone] BUN 8 mg/dL 7-18 Creatinine 0.8 mg/dL 0.6-1.3 Glom Filtration Rate, Estimate >60 mL/min >60 If >60 mL/min >60 39 BUN/Creat 10.0 ratio Sodium 138 mmol/L 136-145 Potassium 3.8 mmol/L 3.5-5.1 Chloride 105 mmol/L 98-107 Carbon Dioxide 26 mmol/L 21-32 Anion Gap 11 mEq/L 8-16 Calcium 8.4 mg/dL Low 8.5-10.1 CBC W/Automated 12/28/2014 [facility] White Blood 13.3 K/uL High 3.1-10.[address] Count [place], [place] [address] [phone] Red Blood Count 4.68 M/uL 3.90-5.40 Hemoglobin [...] % 40.4-72.8 Lymph % 17.3 % 17.0-46.1 [place] % 11.6 % 4.3-13.2 Eo% 1.6 % 0.0-6.6 Bas% 0.3 % 0.0-1.1 Neut# 9.23 K/uL High 1.0-7.0 Lymph # 2.31 K/uL 0.8-3.4 [place] # 1.55 K/uL High 0.3-0.9 Eos # 0.21 K/uL 0.0-0.5 Baso # 0.04 K/uL 0.0-0.1 Influenza A & B 12/17/2014 [facility] Influenza A Negative (Negative) Antigen [address] Antigen [place], [place] [address] [phone] Influenza B Antigen Negative (Negative) 40 BMP W/O Egfr 09/28/2014 [facility] Sodium 139 mmol/L 135-[address] [place] [address] [phone] Potassium 5.1 mmol/L 3.5-5.3 Chloride 105 mmol/L 98-110 Carbon Dioxide 28 mmol/L 19-30 Calcium 9.5 mg/dL 8.6-10.4 Glucose 80 mg/dL 65-99 41 Urea Nitrogen 14 mg/dL 7-25 Creatinine 0.75 mg/dL 0.50-0.99 42 BUN/Creatinine Ratio 18.4 6-22 Laboratory test 09/28/2014 [facility] Hemoglobin A1c 5.9 % High 0.0-5.6 [address] [place], [place] [address] [phone] Direct LDL 150 mg/dL High <130 44 TSH & T4,Free 09/28/2014 [facility] TSH 2.43 mIU/L 0.40-4.[address] [place], [place] [address] [phone] T4,Free 1.5 ng/dL 0.8-1.8 Laboratory test 09/28/2014 [facility] Iron,Total 93 g/dL 45-[address] [place] [address] [phone] CBC W/ Diff & PLT 09/28/2014 [facility] WBC 9.1 thous/L 3.8-10.[address] [place] [address] [phone] RBC 5.04 mill/L 3.80-5.10 Hemoglobin 14.9 g/dL 11.7-15.5 Hematocrit 44.6 % 35.0-45.0 MCV 88.5 FL 80.0-100.0 MCH 29.5 pg 27.0-33.0 MCHC 33.4 g/dL 32.0-36.0 RDW 13.9 % 11.0-15.0 Platelet Count 359 thous/L 140-400 Platelet Sufficiency PENDING Neutrophils,Absolute 5910 cells/L [phone] Bands,Absolute PENDING Metamyelocytes,Absolute PENDING Myelocytes,Absolute PENDING Promyelocytes,Absolute [...] Cells PENDING Basophilic Stippling PENDING Comment PENDING Creatinine 09/15/2014 [facility] Creatinine 1.02 mg/dL High 0.50-0.99 46 W/Egfr [address] [place] [address] [phone] Egfr Non-Afr. [place] 58 ML/MIN/1.73M2 Low > Or=60 Egfr 67 ML/MIN/1.73M2 > Or=60 Laboratory test 09/15/2014 [facility] Urea Nitrogen 17 mg/dL 7-[address] [place] [address] [phone] Laboratory test 06/25/2014 [facility] Direct LDL 152 mg/dL High <130 [address] [place], [place] [address] [phone] TSH & T4,Free 06/25/2014 [facility] TSH 2.38 mIU/L 0.40-4.[address] [place], [place] [address] [phone] T4,Free 1.8 ng/dL 0.8-1.8 CBC W/ Diff & 05/14/2014 [facility] White Blood 9.9 K /uL 3.1-10.[address] Count [place], [place] [address] [phone] Red Blood Count 5.11 M/uL 3.90-5.40 Hemoglobin [...] % 40.4-72.8 Lymph % 25.2 % 17.0-46.1 [place] % 10.8 % 4.3-13.2 Eo% 3.2 % 0.0-6.6 Bas% 0.4 % 0.0-1.1 Neut# 5.98 K/uL 1.0-7.0 Lymph # 2.49 K/uL 0.8-3.4 [place] # 1.07 K/uL High 0.3-0.9 Eos # 0.32 K/uL 0.0-0.5 Baso # 0.04 K/uL 0.0-0.1 Basic Metabolic Panel 05/14/2014 [facility] Glucose 95 mg/dL 76-[address] [place], [place] [address] [phone] BUN 11 mg/dL 5-23 Creatinine 0.7 mg/dL 0.5-1.4 Glom Filtration Rate, Estimate >60 mL/min >60 If >60 mL/min >60 49 BUN/Creat 15.7 ratio Sodium 139 mmol/L 136-145 Potassium 4.2 mmol/L 3.5-5.1 Chloride 104 mmol/L 98-107 Carbon Dioxide 29 mEq/L 18-29 Anion Gap 10 mEq/L 8-16 Calcium 9.6 mg/dL 8.5-10.1 Laboratory test 05/14/2014 [facility] Sedimentation 3 mm/hr 0-[address] Rate [place], [place] [address] [phone] LDL Cholesterol 05/14/2014 [facility] Cholesterol 205 mg/dL High 120-[address] [place], [place] [address] [phone] Triglycerides 136 mg/dL 16-231 HDL Cholesterol 45 mg/dL 29-83 LDL-Cholesterol 133 mg/dL 62-185 Laboratory test 05/14/2014 [facility] Thyroid Stim 5.37 uIU/mL High 0.49-4.[address] Hormone [place], [place] [address] [phone] Free T4 1.20 ng/dL 0.71-1.85 1 Rate Engineer: [id number] SENT BY [facility] PAIN IN ABD AND SOB 3 URINE, CLEAN CATCH 4 SENT BY [facility] PAIN IN ABD AND SOB ABD PAIN, [...] case was reviewed and signed out at [facility], [place] [id number]. Vee Guido M.D., Pathologist Reported: 09/22/2018 7:11 PM Report Signed Electronically GROSS DESCRIPTION Peripheral Blood smear CLINICAL DATA Absolute lymphocytosis, mild Abdominal pain and SOB Vee Guido M.D., Pathologist 09/22/2018 7:11 PM Performed at: [facility] [place] [phone] SENT BY [facility] PAIN IN ABD AND SOB 8 0.0 [...] 11 LDL-C is now calculated using the Marcial-Luba calculation, which is a validated novel method providing better accuracy than the Friedewald equation in the estimation of LDL-C. Marcial SS et al.ALECIA.2013;310(19):3570-1663 Desirable range <100 mg/dL for primary prevention; <70 mg/dL for patients with CHD or diabetic patients with >or=2 CHD risk factors. For additional information, please refer to http://education.[employer]/faq/EBY014(This link is being provided for informational/educational purposes [...] approximately 13% higher for people identified as -C[place]ican. 16 For someone without known diabetes, a [...] Reference Intervals, 7th Ed, [employer], 2011. 18 25-OHD3 indicates both endogenous production and supplementation. 25-OHD2 is an indicator of exogenous sources such as diet or supplementation. Therapy is based on measurement of Total 25-OHD, with levels <20 ng/mL indicative of Vitamin D deficiency while levels between 20 ng/mL and 30 ng/mL suggest insufficiency. Optimal levels are > or=30 ng/mL. For more information on this test, go to http://education.[employer]/faq/PTN037 19 For someone without known diabetes, a [...] approximately 13% higher for people identified as -[place]ican. 23 LDL-CHOLESTEROL RISK CATEGORY* GOAL VERY HIGH [...] Wyman, 2015. Pediatric Reference Intervals, 7th Ed, [employer], 2011. 27 GLUCOSE REFERENCE RANGE BASED ON FASTING SPECIMEN. 28 The upper reference limit for Creatinine is approximately 13% higher for people identified as -[place]. 29 GLUCOSE REFERENCE RANGE BASED ON FASTING SPECIMEN. 30 The upper reference limit for Creatinine is approximately 13% higher for people identified as -[place]. 31 GLUCOSE REFERENCE RANGE BASED ON FASTING SPECIMEN. 32 The upper reference limit for Creatinine is approximately 13% higher for people identified as -[place]. 33 OPERATION/PROCEDURE Colonoscopy, polypectomy DIAGNOSIS: PART 1: [...] in aggregate. Submitted entirely in one cassette. /clf PRE OPERATIVE DIAGNOSIS Diverticulosis, diarrhea REVIEW CODE [...] approximately 13% higher for people identified as -[place]ican. 43 According to ADA guidelines, hemoglobin A1c [...] approximately 13% higher for people identified as -[place]. 47 LDL-CHOLESTEROL RISK CATEGORY* GOAL VERY HIGH [...] www.kdoqi.org. Procedures Date Code Description Status 03/12/2018 57974 EKG-Tracing & Report Completed 03/10/2018 99307 Non-Invcorrotid/Comp /Bilat Study Completed 03/07/2018 67596 Echocardiography Completed 03/06/2018 10706 Dxa Bone Density [employer] Vertebral Fracture Completed Assessment 11/06/2016 82002 Spirometry Graphic Record/Max Voluntary Vent Completed 11/06/2016 20565 EKG-Tracing & Report Completed 10/30/2016 14352 Non-Invcorrotid/Comp /Bilat Study Completed 10/30/2016 82265 Echocardiography Completed 11/29/2015 16961 EKG-Tracing & Report Completed 11/10/2015 95719 Non-Invcorrotid/Comp /Bilat Study Completed 11/08/2015 16040 Echocardiography Completed 04/05/2015 41407 Therapeutic,Prophylactic Intramuscular Inj Completed 03/28/2015 58089 Spirometry Graphic Record/Max Voluntary Vent Completed 03/24/2015 78722 Bone Density Completed 03/24/2015 148924316 Bone Mineral Density Test Completed 03/23/2015 62015 Spirometry Graphic Record/Max Voluntary Vent Completed 05/17/2014 20441 Non-Invcorrotid/Comp /Bilat Study Completed 05/14/2014 30595 EKG-Tracing & Report Completed 05/10/2014 68423 Echocardiography Completed Encounters Type Date Location Provider Dx Diagnosis Office Visit 03/24/2018 Main Office Flores Baez M.D. E78.2 Mixed hyperlipidemia 2:45p I34.0 Nonrheumatic mitral (valve) insufficiency H66.92 Otitis [...] Office Visit 05/11/2015 2:00p Main Office Flores Baez 716.96 Arthropathy Unspec M.D. Lower Leg 244.9 [...] Main Office Flores Baez, 272.4 Hyperlipidemia Other M.Nataly Unspec 790.21 Impaired Fasting Glucose 250.00 Diabetes Mellitus W/O Compl Type II Or Unspec Controlled 473.90 Sinusitis 793.80 Unspecified Abnormal Mammogram 305.1 Tobacco Use Disorder 244.9 Hypothyroidism Other Unspec 401.1 Hypertension Benign 278.02 Overweight 466.0 Bronchitis Acute 715.90 Degenerative Joint Disease Genlzd Or Localzd Site Unspec Plan of Treatment 03/24/2018 - Flores Baez M.D.E78.2 Mixed hyperlipidemiaComments:continue low fat diet and pevlmapvQ92.0 Nonrheumatic mitral (valve) insufficiencyComments: check 2 d echo annually monitor for fluid overload does not need dental prophylaxis at this timeH66.92 Otitis media, unspecified, left earNew Medication :Ciprofloxacin HCL 500 mg - 1 by mouth twice a dayAcetaminophen-Codeine #3 300- 30 mg - 1 by mouth every 6 hours as needed for painComments:antibiotics as directedFollow up:Follow up with doctor in 2 weeks.
--- OUTSIDE RECORDS SUMMARY | 2018-10-23 15:58 | XMS REPORT | Continuity of Care Document ---
:1950 External Reference #:[id number] Author Name Viktoriya De Care Team Providers Name Role Phone Flores Baez MD Care Team Information Sexual Assault Counselor Unavailable Flores Baez MD Primary Care Physician Unavailable Payers Type Date Identification Numbers Payment Provider Subscriber Policy Number: [id number] Todays Options Janna Lane PayID: [id number] [address] [address] [place] [address] Advance Directives Description No Information Available Problems [...] 14cap 1 by H65.03 Anderson Arreguin 2018 s david Baez MD every day Nebulizer 12/06/ Active Device 1unit as J44.9 Flores 2015 s directed Samanta Baez Amlodipine 05/25/ Active Tablets 5mg 90tab 1 By Flores Besylate 2013 s Mouth Gauss, Every Day M.DKenny Levothyroxine 05/25/ Active Tablets 88mcg 90tab 1 By Flores Sodium 2013 s Mouth Sasha, Every Day M.DKenny Lisinopril 05/25/ Active Tablets 20mg 90tab Take 1 Flores 2014 s Tablet By Gauss, Mouth M.D. Every Day Levofloxacin / Active [...] Tablets 500mg 14tab 1 by H65.03 Anderson Arreguin HCL 2017 - s mouth MD Sasha 03/24/ twice a 2017 day Ciprofloxacin 11/12/ Hx Tablets 500mg 30tab 1 by J01.90 Flores HCL 2016 - s mouth Gauss, 02/17/ twice a M.D. 2017 day Prednisone 11/12/ Hx Tablets 5mg 30tab 1 by L20.9 Flores 2017 - s mouth Gauss, 02/17/ twice a M.D. 2017 day for one week and then 5 mg every day x 1 week Hydrocortisone 11/12/ Hx Cream 1% 56gm apply to L20.9 Flores 2016 - rash Gauss, 02/17/ twice a M.D. 2017 day as needed Naproxen 05/14/ Hx Tablets 500mg 60tab 1 by S92.414B Lfores 2017 - s mouth Gauss, 02/17/ twice [...] day with food Cortisporin 10/12/ Hx Solution 3.5-63747- 5ml 1 drop to B30.9 Flores 2014 [...] Capsules 100ca 1 by 009.1 Flores High-Potency 2014 - ps mouth Gauss, 09/24/ three M.D. 2018 times a day with meals Azithromycin 01/04/ Hx Tablets 250mg 6tabs 2 by 473.90 Flores 2014 - mouth Gauss, 03/07/ today, 1 M.D. 2014 by mouth day 2 thru 5 Saline Nasal 01/04/ Hx Solution 0.65% 45ml 1 spray J32.9 Flores [place] 2014 - each Gauss, 02/17/ nostril M.D. 2017 every 2 hours as needed Levothyroxine 05/25/ Hx Tablets 75mcg 90tab 1 by Flores Sodium 2013 - s mouth Gauss, 05/25/ every day M.D. 2013 Azithromycin 05/25/ Hx Tablets 250mg 6tabs 2 by 473.90 Flores 2014 - mouth Gauss, 07/15/ today, 1 M.D. 2013 by mouth day 2 thru 5 Glucosamine 05/25/ Hx Tablets 1 by moth 715.90 Flores Chondroitin MSM 2014 - 2 x daily Sasha, Advanced Triple 09/24/ M.D. Strength 2018 Meloxicam [...] CPT Code Status Date Vaccine Lot # [id number] Given 10/03/2015 Tetanus,Diphtheria,Adut/Adol Pertussis [id number] Given 09/14/2014 Influenza Vaccine (Fluvirin) 2 Years Of Age [place] [id number] Older Vital Signs Date Vital Result Comment [...] Result H/L Range Note Laboratory test 09/19/2018 [facility] Point of Care 104 mg/dL High 70-100 [address] Glucose [place] [id number] [phone] Ua RFX Micro & 09/19/2018 [facility] Urine Color YELLOW Yellow 2 Culture II [address] [place] [address] [phone] Urine Clarity CLEAR Clear Urine Glucose - Dipstick NEGATIVE mg/dL Negative Urine Bilirubin - Dipstick NEGATIVE Negative Urine Ketone NEGATIVE mg/dL Negative Urine Specific [place] 1.025 1.010-1.030 Urine Blood NEGATIVE Negative Urine PH 5.5 Low 6.5-7.5 Urine Protein - Dipstick NEGATIVE mg/dL Negative Urine Urobilinogen - Dipstick 0.2 E.U./dL 0.2-1.0 Urine Nitrite - Dipstick NEGATIVE Negative Urine Leuk Esterase NEGATIVE Negative Source: URINE, CLEAN CAT <SEE NOTE> 3 Protime 09/19/2018 [facility] Protime 12.4 seconds 12.0-14.[address] [place] [address] [phone] Inr 0.9 0.9-1.1 5 Differential-WBC 09/19/2018 [facility] Total Cells 100 #CELLS Confirm [address] Counted [place] [address] [phone] Band% 1 % 0-8 Neutrophils% 49 % 33-73 Lymph% 35 % 20-42 Atypical Lymph% 12 % High 0-7 Monocyte% 3 % 0-10 Platelet Estimate NORMAL RBC Morphology NORMAL Path Review: 09/19/2018 [facility] Path Review: INDICATED,SLIDE [address] <SEE NOTE> [place] [address] [phone] Slide Review 09/19/2018 [facility] Slide Review DIFF ORDERED [address] [place] [address] [phone] CBS 09/19/2018 [facility] White Blood 18.5 K/uL High 3.1- W/Automated [address] Count 10.7 [place] [address] [phone] Red Blood Count 5.37 M/uL 3.90-5.40 Hemoglobin [...] 40.4-72.8 Lymph % 48.2 % High 20.0-42.0 [place] % 7.5 % 4.3-13.2 Eo% 1.5 % 0.0-6.6 Bas% 0.3 % 0.0-1.1 Neut# 7.88 K/uL High 1.8-7.0 Lymph # 8.91 K/uL High 1.0-4.0 [place] # 1.39 K/uL High 0.3-0.9 Eos # 0.27 K/uL 0.0-0.5 Baso # 0.05 K/uL 0.0-0.1 Laboratory test 09/19/2018 [facility] Lipase 128 U/L 56-289 [address] [place], [place] [id number] [phone] Troponin-I < 0.015 ng/mL 8 Comprehensive 09/19/2018 [facility] Glucose 107 mg/ dL High 74-106 Metabolic Panel [address] [place], [place] [id number] [phone] BUN 11 mg/dL 7-18 Creatinine 0.8 mg/dL [...] Cholesterol 259 mg/dL High <[address] [place] [address] [phone] HDL Cholesterol 57 mg/dL >50 Cholesterol/HDL Ratio 4.5 CALC <5.0 LDL Chol,Calculated 160 mg/dL High 0-100 11 Triglycerides 247 mg/dL High <150 Non-HDL Cholesterol 202 mg/dL High <130 12 TSH & T4,Free 03/12/2018 [facility] TSH 4.61 mIU/L High 0.40-4.[address] [place] [address] [phone] T4,Free 1.4 ng/dL 0.8-1.8 Basic Metabolic Panel 03/12/2018 [facility] Sodium 140 mmol/L 135-[address] [place] [address] [phone] Potassium 4.6 mmol/L 3.5-5.3 Chloride 102 mmol/L 98-110 Carbon Dioxide 28 mmol/L 20-31 Calcium 10.0 mg/dL 8.6-10.4 Glucose 97 mg/dL 65-99 14 Urea Nitrogen (BUN) 15 mg/dL 7-25 Creatinine 0.89 mg/dL 0.50-0.99 15 BUN/Creatinine Ratio 16.5 6-22 Egfr Non-Afr. Togolese 66 ML/MIN/1.73M2 > Or=60 Egfr 77 ML/MIN/1.73M2 > Or=60 Laboratory test 03/12/2018 [facility] Hemoglobin A1c 5.9 % High 0-5.6 [address] [place] [address] [phone] Vitamin B12,Serum 409 pg/mL 200-1100 CBC W/ Diff & PLT 03/12/2018 [facility] WBC 16.4 thous/L High 3.8-10.[address] [place], [place] [id number] [phone] RBC 5.49 mill/L High 3.80-5.10 Hemoglobin 16.1 g/dL High 11.7-15.5 Hematocrit 50.3 % High 35.0-45.0 MCV 91.7 FL 80.0-100.0 MCH 29.3 pg 27.0-33.0 MCHC 31.9 g/dL Low 32.0-36.0 RDW 14.0 % 11.0-15.0 Platelet Count 368 thous/L 140-400 Platelet Sufficiency PENDING MPV 8.7 FL 7.5-12.5 Neutrophils,Absolute 7600 cells/L [phone] Bands,Absolute PENDING Metamyelocytes,Absolute PENDING Myelocytes,Absolute PENDING Promyelocytes,Absolute [...] Vitamin 19 ng/mL Low 30-100 25-Hydroxyvitamin [address] D,25-Oh,Total D(D2,D3) [place] [address] [phone] Vitamin D,25-Oh,D3 19 ng/mL Vitamin D,25-Oh,D2 <4 ng/mL 18 Hepatic Function 05/07/2017 [facility] Alkaline Phosphatase 82 U/L 33- [address] [place] [address] [phone] Ast 20 U/L 10-35 Alt 33 U/L High 6-29 Bilirubin,Total 0.5 mg/dL 0.2-1.2 Bilirubin,Direct 0.1 mg/dL < Or=0.2 Protein,Total 6.9 g/dL 6.1-8.1 Albumin 4.3 g/dL 3.6-5.1 Globulin,Calculated 2.6 g/dL 1.9-3.7 A/G Ratio 1.7 1.0-2.5 Laboratory test 05/07/2017 [facility] Hemoglobin A1c 5.9 % High 0-5.6 [address] [place] [address] [phone] TSH & T4,Free 05/07/2017 [facility] TSH 3.06 0.40-4.[address] mIU/[place] [address] [phone] T4,Free 1.4 ng/dL 0.8-1.8 Laboratory test 05/07/2017 [facility] Vitamin 432 pg/mL 200-[address] B12,[place] [address] [phone] Basic Metabolic 05/07/2017 [facility] Sodium 140 mmol/L 135-[address] [place] [address] [phone] Potassium 4.5 mmol/L 3.5-5.3 Chloride 103 mmol/L 98-110 Carbon Dioxide 26 mmol/L 20-31 Calcium 9.4 mg/dL 8.6-10.4 Glucose 94 mg/dL 65-99 21 Urea Nitrogen 14 mg/dL 7-25 Creatinine 0.74 mg/dL 0.50-0.99 22 BUN/Creatinine Ratio 18.2 6-22 Egfr Non-Afr. Togolese 83 ML/MIN/1.73M2 > Or=60 Egfr 96 ML/MIN/1.73M2 > Or=60 Lipid Panel 11/06/2016 [facility] Cholesterol 249 mg/dL High 125-[address] [place] [id number] [phone] HDL Cholesterol 55 mg/dL > Or=46 Cholesterol/HDL Ratio 4.5 < Or=5.0 LDL Chol,Calculated 148 mg/dL High <130 23 Triglycerides 229 mg/dL High <150 Non-HDL Cholesterol 193 mg/dL High 24 TSH & T4,Free 11/06/2016 [facility] TSH 2.30 mIU/L 0.40-4.50 25 [address] [facility] [place] [address] [phone] T4,Free 1.3 ng/dL 0.8-1.8 CBC W/ Diff & PLT 11/06/2016 [facility] WBC 11.2 thous/L High 3.8-10.8 [address] [facility] [place] [address] [phone] RBC 5.37 mill/L High 3.80-5.10 Hemoglobin 15.3 g/dL 11.7-15.5 Hematocrit 46.9 % High 35.0-45.0 MCV 87.3 FL 80.0-100.0 MCH 28.5 pg 27.0-33.0 MCHC 32.6 g/dL 32.0-36.0 RDW 13.8 % 11.0-15.0 Platelet Count 309 thous/L 140-400 Platelet Sufficiency PENDING MPV 9.0 FL 7.5-11.5 Neutrophils,Absolute 6430 cells/L [phone] Bands,Absolute PENDING Metamyelocytes,Absolute PENDING Myelocytes,Absolute PENDING Promyelocytes,Absolute [...] [facility] Sodium 140 mmol/L 135-[address] [place] [address] [phone] Potassium 4.5 mmol/L 3.5-5.3 Chloride 102 mmol/L 98-110 Carbon Dioxide 28 mmol/L 20-31 Calcium 9.7 mg/dL 8.6-10.4 Glucose 94 mg/dL 65-99 27 Urea Nitrogen 11 mg/dL 7-25 Creatinine 0.86 mg/dL 0.50-0.99 28 BUN/Creatinine Ratio 12.8 6-22 Egfr Non-Afr. Togolese 70 ML/MIN/1.73M2 > Or=60 Egfr 81 ML/MIN/1.73M2 > Or=60 BMP W/O Egfr 11/29/2015 [facility] Sodium 137 mmol/L 135-[address] [place] [address] [phone] Potassium 4.4 mmol/L 3.5-5.3 Chloride 101 mmol/L 98-110 Carbon Dioxide 27 mmol/L 19-30 Calcium 10.0 mg/dL 8.6-10.4 Glucose 90 mg/dL 65-99 29 Urea Nitrogen 11 mg/dL 7-25 Creatinine 0.76 mg/dL 0.50-0.99 30 BUN/Creatinine Ratio 14.6 6-22 BMP W/O Egfr 10/31/2015 [facility] Sodium 138 mmol/L 135-[address] [place] [address] [phone] Potassium 4.5 mmol/L 3.5-5.3 Chloride 100 mmol/L 98-110 Carbon Dioxide 27 mmol/L 19-30 Calcium 9.6 mg/dL 8.6-10.4 Glucose 79 mg/dL 65-99 31 Urea Nitrogen 12 mg/dL 7-25 Creatinine 0.69 mg/dL 0.50-0.99 32 BUN/Creatinine Ratio 17.7 6-22 Laboratory test 06/28/2015 [facility] Polyp Colon See Note [address] [place] [address] [phone] Arthritis Profile 05/11/2015 [facility] Rheumatoid Factor 8 IU/mL <[address] [place] [address] [phone] Uric Acid 4.3 mg/dL 2.5-7.0 34 Anti-Streptolysin O 136 IU/mL <201 Selam Screen NEGATIVE Negative Iron Deficiency Profile 05/11/2015 [facility] Iron,Total 78 g/dL 45- [address] [place] [address] [phone] Tibc 398 g/dL 250-450 % Saturation 20 % 11-50 Ferritin 97 NG/ML 20-288 TSH & T4,Free 05/11/2015 [facility] TSH 3.51 mIU/L 0.40-4.[address] [place] [address] [phone] T4,Free 1.6 ng/dL 0.8-1.8 Laboratory test finding 03/28/2015 [facility] Glucose 81 mg/dL 65-99 36 [address] [facility] [place] [address] [phone] Direct LDL 151 mg/dL High <130 37 Basic Metabolic Panel 12/29/2014 [facility] Glucose 99 mg/dL 74-[address] [place] [address] [phone] BUN 6 mg/dL Low 7-18 Creatinine 0.7 mg/dL 0.6-1.3 Glom Filtration Rate, Estimate >60 mL/min >60 If >60 mL/min >60 38 BUN/Creat 8.5 ratio Sodium 140 mmol/L 136-145 Potassium 3.8 mmol/L 3.5-5.1 Chloride 108 mmol/L High 98-107 Carbon Dioxide 24 mmol/L 21-32 Anion Gap 12 mEq/L 8-16 Calcium 8.8 mg/dL 8.5-10.1 Basic Metabolic Panel 12/28/2014 [facility] Glucose 92 mg/dL 74-[address] [place] [address] [phone] BUN 8 mg/dL 7-18 Creatinine 0.8 mg/dL 0.6-1.3 Glom Filtration Rate, Estimate >60 mL/min >60 If >60 mL/min >60 39 BUN/Creat 10.0 ratio Sodium 138 mmol/L 136-145 Potassium 3.8 mmol/L 3.5-5.1 Chloride 105 mmol/L 98-107 Carbon Dioxide 26 mmol/L 21-32 Anion Gap 11 mEq/L 8-16 Calcium 8.4 mg/dL Low 8.5-10.1 CBC W/Automated 12/28/2014 [facility] White Blood 13.3 K/uL High 3.1-10.[address] [place] [address] [phone] Red Blood Count 4.68 M/uL 3.90-5.40 Hemoglobin [...] % 40.4-72.8 Lymph % 17.3 % 17.0-46.1 [place] % 11.6 % 4.3-13.2 Eo% 1.6 % 0.0-6.6 Bas% 0.3 % 0.0-1.1 Neut# 9.23 K/uL High 1.0-7.0 Lymph # 2.31 K/uL 0.8-3.4 [place] # 1.55 K/uL High 0.3-0.9 Eos # 0.21 K/uL 0.0-0.5 Baso # 0.04 K/uL 0.0-0.1 Influenza A & B 12/17/2014 [facility] Influenza A Negative (Negative) Antigen [address] [place] [address] [phone] Influenza B Antigen Negative (Negative) 40 BMP W/O Egfr 09/28/2014 [facility] Sodium 139 mmol/L 135-[address] [place] [address] [phone] Potassium 5.1 mmol/L 3.5-5.3 Chloride 105 mmol/L 98-110 Carbon Dioxide 28 mmol/L 19-30 Calcium 9.5 mg/dL 8.6-10.4 Glucose 80 mg/dL 65-99 41 Urea Nitrogen 14 mg/dL 7-25 Creatinine 0.75 mg/dL 0.50-0.99 42 BUN/Creatinine Ratio 18.4 6-22 Laboratory test 09/28/2014 [facility] Hemoglobin A1c 5.9 % High 0.0-5.6 43 finding [address] [facility] [place] [address] [phone] Direct LDL 150 mg/dL High <130 44 CBC W/ Diff & PLT 09/28/2014 [facility] WBC 9.1 thous/L 3.8-10.[address] [place] [address] [phone] RBC 5.04 mill/L 3.80-5.10 Hemoglobin 14.9 g/dL 11.7-15.5 Hematocrit 44.6 % 35.0-45.0 MCV 88.5 FL 80.0-100.0 MCH 29.5 pg 27.0-33.0 MCHC 33.4 g/dL 32.0-36.0 RDW 13.9 % 11.0-15.0 Platelet Count 359 thous/L 140-400 Platelet Sufficiency PENDING Neutrophils,Absolute 5910 cells/L 5225-1160 Bands,Absolute PENDING Metamyelocytes,Absolute PENDING Myelocytes,Absolute PENDING Promyelocytes,Absolute [...] Lab Iron,Total 93 g/dL 45-[address] [place], [place] [id number] [phone] TSH & T4,Free 09/28/2014 [facility] TSH 2.43 mIU/L 0.40-4.[address] [place] [address] [phone] T4,Free 1.5 ng/dL 0.8-1.8 Laboratory test 09/15/2014 [facility] Urea Nitrogen 17 mg/dL 7-[address] [place], [place] [address] [phone] Creatinine 09/15/2014 [facility] Creatinine 1.02 mg/dL High 0.50-0.9 46 W/Egfr [address] [place], [place] [address] [phone] Egfr Non-Afr. Togolese 58 ML/MIN/1.73M2 Low > Or=60 Egfr 67 ML/MIN/1.73M2 > Or=60 TSH & T4,Free 06/25/2014 [facility] TSH 2.38 mIU/L 0.40-4.[address] [place] [address] [phone] T4,Free 1.8 ng/dL 0.8-1.8 Laboratory test 06/25/2014 [facility] Direct LDL 152 mg/dL High <130 [address] [place] [address] [phone] Laboratory test 05/14/2014 [facility] Thyroid Stim 5.37 High 0.49-4.[address] Hormone uIU/mL [place], [place] [address] [phone] Free T4 1.20 ng/dL 0.71-1.85 LDL Cholesterol 05/14/2014 [facility] Cholesterol 205 mg/dL High 120-[address] [place] [address] [phone] Triglycerides 136 mg/dL 16-231 HDL Cholesterol 45 mg/dL 29-83 LDL-Cholesterol 133 mg/dL 62-185 Laboratory test 05/14/2014 [facility] Sedimentation Rate 3 mm/hr 0-[address] [place] [address] [phone] Basic Metabolic 05/14/2014 [facility] Glucose 95 mg/ dL 76-[address] [place] [address] [phone] BUN 11 mg/dL 5-23 Creatinine 0.7 mg/dL 0.5-1.4 Glom Filtration Rate, Estimate >60 mL/min >60 If >60 mL/min >60 49 BUN/Creat 15.7 ratio Sodium 139 mmol/L 136-145 Potassium 4.2 mmol/L 3.5-5.1 Chloride 104 mmol/L 98-107 Carbon Dioxide 29 mEq/L 18-29 Anion Gap 10 mEq/L 8-16 Calcium 9.6 mg/dL 8.5-10.1 CBC W/ Diff & 05/14/2014 [facility] White Blood 9.9 K /uL 3.1-10.[address] [place] [address] [phone] Red Blood Count 5.11 M/uL 3.90-5.40 Hemoglobin [...] % 40.4-72.8 Lymph % 25.2 % 17.0-46.1 [place] % 10.8 % 4.3-13.2 Eo% 3.2 % 0.0-6.6 Bas% 0.4 % 0.0-1.1 Neut# 5.98 K/uL 1.0-7.0 Lymph # 2.49 K/uL 0.8-3.4 [place] # 1.07 K/uL High 0.3-0.9 Eos # 0.32 K/uL 0.0-0.5 Baso # 0.04 K/uL 0.0-0.1 1 Card Lacer: [id number] 2 SENT BY [facility] PAIN IN ABD AND SOB 3 URINE, CLEAN CATCH 4 SENT BY [facility] PAIN IN ABD AND SOB ABD PAIN, LEUKOCYTOCIS 5 THERAPEUTIC INR RANGE: 2.0 - 3.0 DVT, Pulmonary embolus, prophylaxis against venous thrombosis or systemic embolization in high risk patients. 2.5 - 3.5 Mechanical heart valves 6 INDICATED,SLIDE SENT Reviewed previous history, path review indicated Hematology Consultation - Final Report Case# [id number] FINAL DIAGNOSIS REVIEW OF PERIPHERAL BLOOD SMEAR Review of peripheral blood smear confirms the hemogram findings. There is mild absolute lymphocytosis. The lymphcytes have reactive appearance. The findings are strongly suggestive of an ACUTE VIRAL INFECTION. This case was reviewed and signed out at [facility], [address] [place] [address]. Vee Guido M.D., Pathologist Reported: 09/22/2018 7:11 PM Report Signed Electronically GROSS DESCRIPTION Peripheral Blood smear CLINICAL DATA Absolute lymphocytosis, mild Abdominal pain and SOB Vee Guido M.D., Pathologist 09/22/2018 7:11 PM Performed at: [facility] [address] [address] 7 SENT BY [facility] PAIN IN ABD AND SOB 8 [...] the estimation of LDL-C. Marcial LOVE et al.ALECIA.2013;310(19):4403-7025 Desirable range <100 mg/dL for primary prevention; <70 mg/dL for patients with CHD or diabetic patients with >or=2 CHD risk factors. For additional information, please refer to http://education.Nature's Variety.Oatmeal/faq/HVC498(This link is being provided for informational/educational purposes [...] approximately 13% higher for people identified as -Togolese. 16 For someone without known diabetes, a [...] Wyman, 2015. Pediatric Reference Intervals, 7th Ed, [facility] [employer], 2011. 18 25-OHD3 indicates both endogenous production and supplementation. 25-OHD2 is an indicator of exogenous sources such as diet or supplementation. Therapy is based on measurement of Total 25-OHD, with levels <20 ng/mL indicative of Vitamin D deficiency while levels between 20 ng/mL and 30 ng/mL suggest insufficiency. Optimal levels are > or=30 ng/mL. For more information on this test, go to http://Thing[employer] Club.Maps InDeed/faq/QPM038 19 For someone without known diabetes, a [...] approximately 13% higher for people identified as -Togolese. 23 LDL-CHOLESTEROL RISK CATEGORY* GOAL VERY HIGH [...] approximately 13% higher for people identified as -Togolese. 29 GLUCOSE REFERENCE RANGE BASED ON FASTING SPECIMEN. 30 The upper reference limit for Creatinine is approximately 13% higher for people identified as -Togolese. 31 GLUCOSE REFERENCE RANGE BASED ON FASTING SPECIMEN. 32 The upper reference limit for Creatinine is approximately 13% higher for people identified as -Togolese. 33 OPERATION/PROCEDURE Colonoscopy, polypectomy DIAGNOSIS: PART 1: [...] approximately 13% higher for people identified as -Togolese. 43 According to ADA guidelines, hemoglobin A1c [...] approximately 13% higher for people identified as -Togolese. 47 REFERENCE RANGES BELOW ARE APPLICABLE TO FEMALES FIRST TRIMESTER - 0.26 - 2.66 mIU/L SECOND TRIMESTER - 0.55 - 2.73 mIU/L THIRD TRIMESTER - 0.43 - 2.91 mIU/L 48 LDL-CHOLESTEROL RISK CATEGORY* GOAL VERY HIGH (E.G. DIABETES + CVD) <70 MG/DL HIGH (DIABETICS; CHD RISK EQUIVALENTS) <100 MG/DL MODERATELY HIGH (MULTIPLE(2+) RISK FACTORS) <130 MG/DL 0 TO 1 RISK FACTORS <160 MG/DL * NCEP REPORT. CIRCULATION 2004; 110: 227-239 49 Note: Persistent reduction for 3 months [...] [email or web address]. Procedures Date Code Description Status 03/12/2018 23767 EKG-Tracing & Report Completed 03/10/2018 20521 Non-Invcorrotid/Comp /Bilat Study Completed 03/07/2018 25828 Echocardiography Completed 03/06/2018 00847 Dxa Bone Density Axial Skeleton Inc Vertebral Fracture Completed Assessment 11/06/2016 82238 Spirometry Graphic Record/Max Voluntary Vent Completed 11/06/2016 07276 EKG-Tracing & Report Completed 10/30/2016 50535 Non-Invcorrotid/Comp /Bilat Study Completed 10/30/2016 14947 Echocardiography Completed 11/29/2015 38364 EKG-Tracing & Report Completed 11/10/2015 01659 Non-Invcorrotid/Comp /Bilat Study Completed 11/08/2015 44859 Echocardiography Completed 04/05/2015 73203 Therapeutic,Prophylactic Intramuscular Inj Completed 03/28/2015 13735 Spirometry Graphic Record/Max Voluntary Vent Completed 03/24/2015 46597 Bone Density Completed 03/24/2015 [id number] Bone Mineral Density Test Completed 03/23/2015 17951 Spirometry Graphic Record/Max Voluntary Vent Completed 05/17/2014 78652 Non-Invcorrotid/Comp /Bilat Study Completed 05/14/2014 93161 EKG-Tracing & Report Completed 05/10/2014 90645 Echocardiography Completed Encounters Type Date Location Provider [...] Or Localzd Site Unspec Plan of Treatment 09/24/2018 - Flores Baez M.D.J01.90 Acute sinusitis, unspecifiedNew Medication: Levofloxacin 500 mg - tab 1 by mouth every dayK75.89 Other specified inflammatory liver diseasesNew Labs:CBC (H/H,RBC,Indices,WBC,PLT), Ordered:
[2018-10-23 16:18] VITALS: BP 138/74
--- NOTE | 2018-10-23 17:12 | UC ---
Skin Complaint HPI - HPI Summary HPI Summary: Pt presents with c/o of itchy, rash that has worsened over the last week. Pt reports that she was seen here and given permethrin cream. Pt states no improvement in rash. Pt reports that rash has now blistered under left breast and skin under left breast is now tender and slightly excoriated. Pt was seen by PCP and told had elevated "white count" and was being referred to aquatics specialist. Pt has not been seen by aquatics specialist at this point. Does not have referral/appointment. Pt reprots that skin is "peelng off body" after showering, that she has Pin prick garcia on lower extremities that bleed after bathing and drying off. Pt states she is exhausted and has been having occasional night sweats. - History of Current Complaint Chief Complaint: [facility] Time Seen by Provider: 10/23/18 16:11 Stated Complaint: SKIN RASH Hx Obtained From: Patient ?: No Onset/Duration: Gradual Onset, Lasting Weeks, Still Present, Worse Since - onset Skin Exposure Onset/Duration: Weeks Ago Timing: Constant Onset Severity: Mild Current Severity: Moderate Pain Intensity: 6 Pain Scale Used: 0-10 Numeric Location: Diffuse Character: Pruritus, Redness, Raised Aggravating Factor(s): Touch Alleviating Factor(s): Nothing Associated Signs & Symptoms: Positive: Rash, Tenderness - Allergy/Home Medications Allergies/Adverse Reactions: Allergies Allergy/AdvReac Type Severity Reaction Status Date / Time Penicillins Allergy Hives Verified 10/23/18 16:09 Sulfa (Sulfonamide Allergy Hives Verified 10/23/18 16:09 Antibiotics) Review of Systems All Other Systems Reviewed And Are Negative: Yes Constitutional: Positive: Fatigue Skin: Positive: Rash Eyes: Positive: Negative ENT: Positive: Negative Respiratory: Positive: Negative Cardiovascular: Positive: Negative Gastrointestinal: Positive: Negative Genitourinary: Positive: Negative Motor: Positive: Negative Neurovascular: Positive: Negative Musculoskeletal: Positive: Negative Neurological: Positive: Negative Psychological: Positive: Negative Is Patient Immunocompromised?: No PMH/Surg Hx/FS Hx/Imm Hx Previously Healthy: Yes - Surgical History Surgical History: Yes Surgery Procedure, Year, and Place: Right Leg "Arteries" Stenting, Appendectomy , Partial Hysterectomy, Right Knee Arthroscopies - Family History Known Family History: Positive: Cardiac Disease, Hypertension, Diabetes - Social History Occupation: Retired Lives: With Family Alcohol Use: Occasionally Substance Use Type: None Smoking Status (MU): Heavy Every Day Tobacco Smoker Type: Cigarettes Amount Used/How Often: 1/2 PPD Length of Time of Smoking/Using Tobacco: Since Age 15 Have You Smoked in the Last Year: Yes Physical Exam Triage Information Reviewed: Yes Appearance: Ill-Appearing Vital Signs: Initial Vital Signs Temp 97.4 F 10/23/18 16:12 Pulse 87 10/23/18 16:12 Resp 16 10/23/18 16:12 BP 138/74 10/23/18 16:12 Pulse Ox 97 10/23/18 16:12 Vital Signs Reviewed: Yes Eye Exam: Normal ENT Exam: Normal Dental Exam: Normal Neck exam: Normal Respiratory Exam: Normal Cardiovascular Exam: Normal Musculoskeletal Exam: Normal Neurological Exam: Normal Psychological: Positive: Normal Response To Family Skin: Positive: Rashes - bilateral lower extremities, scatered multiple blanchable, pin prick erythematous dots. shiny, flat mild erythematous circular area ~ 3 cm diameter, slightly excoriated area under left breast. Course/Dx - Differential Diagnoses - Skin Complaint Differential Diagnoses: Cellulitis, Contact Dermatitis, Tinea - Diagnoses Provider Diagnosis: Tinea, Rash and other nonspecific skin eruption Discharge - Sign-Out/Discharge Documenting (check all that apply): Patient Departure All imaging exams completed and their final reports reviewed: No Studies - Discharge Plan Condition: Stable Disposition: HOME Prescriptions: Clotrimazole 1% CREAM* [Clotrimazole 1%*] 1 applic TOPICAL Q12H 10 Days #1 tube predniSONE TAB* [Deltasone 10 MG TAB*] 30 mg PO DAILY #12 tab Patient Education Materials: Acute Rash (ED), Itchy Skin (ED), Skin Yeast Infection (ED) Referrals: Carolyn Connelly MD [Medical Doctor] - As Soon As Possible Flores Baez MD [Primary Care Provider] - As Soon As Possible - Billing Disposition and Condition Condition: STABLE Disposition: Home
== END 2018-10-23 16:53 | disposition home or self-care (01) ==
LOC: UCCORT 15:43
DX: B35.9 Dermatophytosis, unspecified (principal); R21 Rash and other nonspecific skin eruption; Z88.0 Allergy status to penicillin; Z88.1 Allergy status to other antibiotic agents; F17.210 Nicotine dependence, cigarettes, uncomplicated
CPT/HCPCS: 99212; G0463